=== PATIENT | male | born 1955 | race Caucasian/White ===

== ENCOUNTER 2018-10-02 11:08 | Inpatient (IN) | payer OTHER ==
[~2018-10-02] VITALS: Ht 182.9 cm; Wt 89.4 kg
--- NOTE | 2018-10-02 11:45 | NUR ---
IV LINE STARTED BLOOD DRAWN AND SENT TO LAB.
--- NOTE | 2018-10-02 11:55 | NUR ---
pt came in for weakness, weight loss and SOB, alert, follows commands, SR, SOB, RR 24, sat well, BL leg ulcers and pitting edema, v/s stable, no pain, family at the bedside, seen by .
[2018-10-02 12:30] LABS: CARBON DIOXIDE 21 mmol/L (21-32); CHLORIDE 99 mmol/L (98-107); POTASSIUM 6.3 mmol/L (3.5-5.1); SODIUM SERUM 132 mmol/L (136-145)
[2018-10-02 12:31] LABS: BILIRUBIN,DIRECT 1.7 mg/dL (0.0-0.2); CALCIUM, SERUM 9.3 mg/dL (8.5-10.1); CREATININE 2.8 mg/dL (0.6-1.3)
[2018-10-02 12:32] LABS: ALANINE AMINOTRANSFERASE 36 U/L (12-78); ALKALINE PHOSPHATASE 151 U/L (46-116); ASPARTATE AMINOTRANSFERASE 17 U/L (15-37); B-TYPE NATRIURETIC PEPTIDE 26264 PG/ML (0-125)
[2018-10-02 12:35] LABS: GLUCOSE 495 mg/dL (74-106)
[2018-10-02 12:36] LABS: UREA NITROGEN, BLOOD 107 mg/dL (7-18)
[2018-10-02 12:37] LABS: BASOPHILS % (AUTO) 0.2 % (0.0-2.0); HEMATOCRIT 55 % (39-51); LYMPHOCYTES # (AUTO) 0.7 /CMM (0.8-4.8); LYMPHOCYTES % (AUTO) 4.7 % (20.0-44.0); MEAN CORPUSCULAR HGB CONC 32 g/dl (31.0-36.0); MEAN CORPUSCULAR VOLUME 91 fL (80-96); MONOCYTES # (AUTO) 0.6 /CMM (0.1-1.30); MONOCYTES % (AUTO) 4.2 % (2.0-12.0); NEUTROPHILS # (AUTO) 13.2 /CMM (1.8-8.9); NEUTROPHILS % (AUTO) 90.9 % (43.0-81.0); PLATELET COUNT (AUTO) 120 /CMM (150-450); RED BLOOD CELL COUNT(AUTO) 6.03 MIL/uL (4.5-6.0); WHITE BLOOD COUNT (AUTO) 14.6 K/uL (4.3-11.0)
[2018-10-02 12:39] LABS: HEMOGLOBIN 17.6 g/dL (13.5-17.5)
[2018-10-02] MEDS ORDERED: INSULIN REGULAR, HUMAN 100 UNIT/ML 10 ML VIAL IV ONE (13:00)
[2018-10-02] MEDS ORDERED: INSULIN REGULAR, HUMAN 100 UNIT/ML 10 ML VIAL ONE (13:02)
--- NOTE | 2018-10-02 13:15 | NUR ---
CALLED NURSING SUP REQUESTED JAMIR BED
--- NOTE | 2018-10-02 13:19 | NUR ---
120-1 JAMIR DX ACUTE RENAL FAILURE, NSTEMI, HYPERGLYCEMIA, CHF, SEVERE DEHYDRATION ACCEPTING DAVID COPELAND
[2018-10-02] MEDS ORDERED: MEROPENEM 1 G in IV NS 0.9% 100 ML IV ONE (13:30)
--- NOTE | 2018-10-02 13:48 | NUR ---
CANDY CATCHER DAVID COPELAND AT BEDSIDE
[2018-10-02] MEDS ORDERED: ASPIRIN 325 MG TABLET PO ONE (14:30)
[2018-10-02] MEDS ORDERED: MAG HYDROX/AL HYDROX/SIMETH 30 ML UDC PO PRN (14:30)
[2018-10-02] MEDS ORDERED: ONDANSETRON HCL/PF 4 MG/2 ML VIAL IVP PRN (14:30)
[2018-10-02] MEDS ORDERED: ACETAMINOPHEN 325 MG TABLET PO PRN (14:30)
[2018-10-02] MEDS ORDERED: DEXTROSE 50%-WATER 50 ML DISP.SYRIN IV PRN (14:30)
[2018-10-02] MEDS ORDERED: MORPHINE SULFATE INJ 2 MG/ML DISP.SYRIN IV PRN (14:30)
[2018-10-02] MEDS ORDERED: MAGNESIUM HYDROXIDE 30 ML UDC PO PRN (14:30)
[2018-10-02] MEDS ORDERED: HYDROCODONE/APAP 5/325MG 1 EACH TABLET PO PRN (14:30)
--- NOTE | 2018-10-02 14:43 | NUR ---
ADMIT TO ROOM 114-1 JAMIR
[2018-10-02] MEDS ORDERED: ASPIRIN 325 MG TABLET ONE (14:53)
[2018-10-02] MEDS: PANTOPRAZOLE 40 MG TABLET.DR PO SCH (14:53)
[2018-10-02] MEDS ORDERED: PANTOPRAZOLE 40 MG TABLET.DR PO ONE (14:53)
[2018-10-02] MEDS ORDERED: SODIUM POLYSTYRENE SULFONATE 15 G/60 ML BOTTLE PO ONE (15:00)
[2018-10-02] MEDS ORDERED: ALBUTEROL FS 2.5 MG/3 ML VIAL.NEB NEB ONE (15:00)
[2018-10-02] MEDS ORDERED: FEE PK DOSING 1 MIN EA MC ONE (15:05)
[2018-10-02 16:00] VITALS: BP 136/71
--- NOTE | 2018-10-02 16:00 | NUR ---
TD RN NOTES ADMITTED FROM ER, THIS PT WITH DX SEVERE SEPSIS, NSTEMI, CHF, ATTENDING MD DAVID COPELAND. PT AAO X 4, WEAK LOOKING, ON 2L O2 NASAL CANULA, NOT ZULMA [place] DISTRESS, RESPIRATION UNLABORED, SR HR 99 ON MONITOR. DENIES CHEST PAIN/DISCOMFORT, LEFT AC G 18 IV FLUSHES WELL, SITE CLEAR. SEE NURSING FLOWSHEET FOR SEVERAL SKIN ISSUES. PHOTOS TAKEN AND INCORPORATED INSIDE CHART. BLE WITH +3 TO +4 PITTING EDEMA. ON CARDIAC DIET. UNIT ORIENTATION AND USE OF CALL LIGHT DONE. VERBALIZED UNDERSTANDING. ALL ADMITTING ORDERS CARRIED OUT. SAFETY MEASURES IN PLACE. WILL CONT TO MONITOR.
[2018-10-02] MEDS ORDERED: IV NS 0.9% 1,000 ML IV PRN (17:01)
[2018-10-02] MEDS: VANCOMYCIN 1 GM in IV D5W 250 ML IV SCH (18:09)
[2018-10-02] MEDS: BLOOD SUGAR DIAGNOSTIC 1 EACH STRIP VI SCH ×2 (18:27→21:44)
[2018-10-02] MEDS: INSULIN REGULAR, HUMAN 100 UNIT/ML 3 ML VIAL SQ PRN (18:48)
--- NOTE | 2018-10-02 19:30 | NUR ---
TD RN NOTES ALL NEEDS MET AT THIS TIME. PT'S STAFF AT BEDSIDE. RESTING COMFORTABLY. NO OTHER SIGNIFCANT CHANGE IN CONDITION. NOT IN DISTRESS. PER DAVID COPELAND TO FOLLOW DR. DOWNING WITH IVF NS AT 125 ML/HR. SAFETY MEASURES IN PLACE. WILL ENDORSE TO NEXT SHIFT FOR USHA.
[2018-10-02 20:00] VITALS: BP 90/72
[2018-10-02] MEDS ORDERED: MEROPENEM 500 MG in IV NS 0.9% 50 ML IV SCH (21:00)
[2018-10-02] MEDS: MEROPENEM 1 G in IV NS 0.9% 100 ML IV SCH (21:37)
[2018-10-02] MEDS: *INSULIN REGULAR(HUMULIN R)HUM 100 UNIT/ML VIAL SQ PRN (21:53)
[2018-10-02] MEDS ORDERED: TEMAZEPAM 7.5 MG CAPSULE PO PRN (22:20)
[2018-10-03] VITALS: BP 130/75
[2018-10-03 04:00] VITALS: BP 130/75
[2018-10-03 07:26] LABS: BASOPHILS % (AUTO) 0.1 % (0.0-2.0); EOSINOPHILS % (AUTO) 0.4 % (0.0-6.0); HEMATOCRIT 50 % (39-51); HEMOGLOBIN 16.1 g/dL (13.5-17.5); LYMPHOCYTES # (AUTO) 0.8 /CMM (0.8-4.8); LYMPHOCYTES % (AUTO) 6.6 % (20.0-44.0); MEAN CORPUSCULAR HGB CONC 32 g/dl (31.0-36.0); MEAN CORPUSCULAR VOLUME 90 fL (80-96); MONOCYTES # (AUTO) 0.6 /CMM (0.1-1.30); NEUTROPHILS # (AUTO) 10.2 /CMM (1.8-8.9); NEUTROPHILS % (AUTO) 87.9 % (43.0-81.0); PLATELET COUNT (AUTO) 92 /CMM (150-450); RED BLOOD CELL COUNT(AUTO) 5.57 MIL/uL (4.5-6.0); WHITE BLOOD COUNT (AUTO) 11.6 K/uL (4.3-11.0)
--- NOTE | 2018-10-03 07:30 | NUR ---
RN NOTES RECEIVED PATIENT IN BED, AWAKE, A/O X4, NOT ON ANY FORM OF DISTRESS. ON 02 SUPPORT VIA NASAL CANNULA AT 2 LPM, SATING FINE, NO SOB NOTED, SR ON THE MONITOR HR ON THE 90'S, NO COMPLAINTS OF PAIN AT THIS TIME. IV ACCESS ON THE L AC IN PLACE AND INTACT, PATEBT ON FLUSHING, DRESSING CDI, WITH ONGOING IVF OF NS AT 125 ML/HR, PATIENT ENCOURAGE TO USE CALL LIGHT FOR HELP AND AIRSTANCE, CALL LIGHT PLACE WITHIN REACH, BED LOW AND LOCKED POSITION. WILL CONTINUE TO MONITOR PATIENT CLOSELY
[2018-10-03 07:39] LABS: ALBUMIN 2.3 g/dL (3.4-5.0); BILIRUBIN,TOTAL 1.8 mg/dL (0.2-1.0); CALCIUM, SERUM 8.3 mg/dL (8.5-10.1); CREATININE 2.1 mg/dL (0.6-1.3); MAGNESIUM 3.2 mg/dL (1.8-2.4); PHOSPHORUS 4.4 mg/dL (2.5-4.9); POTASSIUM 4.6 mmol/L (3.5-5.1); TOTAL PROTEIN, SERUM 5.7 g/dL (6.4-8.2)
[2018-10-03 07:51] LABS: THYROID STIMULATING HORMONE 2.452 uIU/mL (0.358-3.74)
[2018-10-03 08:00] VITALS: BP 98/73
[2018-10-03 08:50] LABS: LYMPHOCYTES % (MANUAL) 4 % (16-48); MONOCYTES % (MANUAL) 5 % (0-11.0); NEUTROPHILS % (MANUAL) 91 (42-76)
[2018-10-03] MEDS ORDERED: ASPIRIN 81 MG TAB.CHEW PO SCH (09:00)
[2018-10-03] MEDS: BLOOD SUGAR DIAGNOSTIC 1 EACH STRIP VI SCH ×2 (09:27→12:24)
[2018-10-03] MEDS: MEROPENEM 1 G in IV NS 0.9% 100 ML IV SCH ×2 (09:28→22:06)
[2018-10-03] MEDS: PANTOPRAZOLE 40 MG TABLET.DR PO SCH (09:28)
[2018-10-03 12:00] VITALS: BP 92/56
[2018-10-03] MEDS: INSULIN REGULAR, HUMAN 100 UNIT/ML 3 ML VIAL SQ PRN ×2 (12:27→17:29)
--- NOTE | 2018-10-03 14:00 | NUR ---
RN NOTES WOUND DEBRIDEMENT OF BILATERAL LEG DONE. DR. GRAY THAT PLATELET AT 92 TODAY FROM 102 YESTERDAY.
[2018-10-03] MEDS ORDERED: DEXTROSE 50%-WATER 50 ML DISP.SYRIN IV PRN (15:00)
--- NOTE | 2018-10-03 15:00 | NUR ---
RN NOTES INFORMED DAVID COPELAND NP ABOUT PLATELET LEVEL TODAY. NO NEW ORDER AT THIS TIME.
[2018-10-03] MEDS: VANCOMYCIN 1 GM in IV D5W 250 ML IV SCH (15:47)
[2018-10-03 16:00] VITALS: BP 92/64
[2018-10-03] MEDS: LACTOBACILLUS RHAMNOSUS GG 1 EACH CAP.SPRINK PO SCH (17:27)
[2018-10-03] MEDS: BLOOD SUGAR DIAGNOSTIC 1 EACH STRIP IN SCH ×2 (17:29→22:06)
--- NOTE | 2018-10-03 18:00 | NUR ---
RN NOTES INFORMED DAVID COPELAND NP ON THE PROCALCITONIN LEVEL AT 0.41. AWAITING RESPONSE
--- NOTE | 2018-10-03 18:25 | NUR ---
Met with patient and perry Kathy at bedside. Patient is alert and pleasant. States he lives on the second floor apartment with his roommate Fran [phone]. States he is employed and currently on medical leave. Prior to hospitalization, he was ambulatory and independent with adl's. Has no DME or homehealth reported. His roommate provides assistance as needed and his family (brother and niece) who lives in [place] are very involved and supportive. He needs to find PMD for outpt follow needs after discharge. Addendum: 10/03/18 at 5308 by FELI SCOTT RN Amended: Links added.
--- NOTE | 2018-10-03 19:37 | NUR ---
RN NOTES ENDORSED PATIENT FOR CONTINUITY OF CARE. NOT ON ANY FORM OF DISTRESS. NO ACUTE CHANGE WITHIN THE SHIFT. ALL NURSING NEEDS ATTENDED AND MET. SAFETY MEASURES KEPT IN PLACE AT ALL TIMES. CALL LIGHT WITHIN REACH
[2018-10-03 20:00] VITALS: BP 90/60
[2018-10-03] MEDS: INSULIN GLARGINE, 100 UNIT/ML CARTRIDGE SQ SCH (22:09)
[2018-10-03] MEDS: *INSULIN REGULAR(HUMULIN R)HUM 100 UNIT/ML VIAL SQ PRN (22:11)
[2018-10-04] VITALS: BP 93/63
[2018-10-04 04:00] VITALS: BP 94/69
--- NOTE | 2018-10-04 07:00 | NUR ---
RN NOTES RECEIVED PATIENT ON BED, A/Ox4, ON 2L O2 N/C , RESPIRATION EVEN AND UNLABORED, NO SOB NOTED, ON TELE SR HR IN 80'S, DRESSING TO KALYAN LOWER EXTRIMITES INTACT, R ARM IV SITE G 20 CLEAN,DRY AND INTACT, SR UP x3, CALL LIGHT WITHIN EASY REACH, BED LOCKED AND IN LOWEST POSITION , CONTINUE TO MONITOR .
[2018-10-04 08:00] VITALS: BP 100/67
[2018-10-04] MEDS: LACTOBACILLUS RHAMNOSUS GG 1 EACH CAP.SPRINK PO SCH ×2 (08:13→17:10)
[2018-10-04] MEDS: PANTOPRAZOLE 40 MG TABLET.DR PO SCH (08:13)
[2018-10-04 08:17] LABS: BASOPHILS % (AUTO) 0.1 % (0.0-2.0); EOSINOPHILS % (AUTO) 0.4 % (0.0-6.0); HEMATOCRIT 48 % (39-51); HEMOGLOBIN 16.1 g/dL (13.5-17.5); LYMPHOCYTES # (AUTO) 0.9 /CMM (0.8-4.8); MEAN CORPUSCULAR HGB CONC 33 g/dl (31.0-36.0); MEAN CORPUSCULAR VOLUME 88 fL (80-96); MONOCYTES # (AUTO) 0.6 /CMM (0.1-1.30); MONOCYTES % (AUTO) 5.8 % (2.0-12.0); NEUTROPHILS # (AUTO) 8.9 /CMM (1.8-8.9); NEUTROPHILS % (AUTO) 84.7 % (43.0-81.0); PLATELET COUNT (AUTO) 80 /CMM (150-450); RED BLOOD CELL COUNT(AUTO) 5.47 MIL/uL (4.5-6.0); WHITE BLOOD COUNT (AUTO) 10.4 K/uL (4.3-11.0)
[2018-10-04] MEDS: BLOOD SUGAR DIAGNOSTIC 1 EACH STRIP IN SCH ×4 (08:17→21:37)
[2018-10-04] MEDS: MEROPENEM 1 G in IV NS 0.9% 100 ML IV SCH ×2 (08:17→21:37)
[2018-10-04] MEDS: INSULIN REGULAR, HUMAN 100 UNIT/ML 3 ML VIAL SQ PRN ×2 (08:17→11:36)
[2018-10-04 08:21] LABS: CALCIUM, SERUM 8.1 mg/dL (8.5-10.1); CREATININE 1.5 mg/dL (0.6-1.3); POTASSIUM 3.4 mmol/L (3.5-5.1)
[2018-10-04 08:43] LABS: BAND % (MANUAL) 4 % (0.0-5.0); EOSINOPHILS % (MANUAL) 2 % (0-4); LYMPHOCYTES % (MANUAL) 9 % (16-48); MONOCYTES % (MANUAL) 5 % (0-11.0); NEUTROPHILS % (MANUAL) 80 (42-76)
[2018-10-04] MEDS: POTASSIUM CL. PREMIX PERIPHER. 50 ML IV SCH ×2 (11:04→12:21)
--- NOTE | 2018-10-04 12:00 | NUR ---
RN NOTES PT STABLE , NO DISTRESS NOTED, CONTINUE TO MONITOR .
[2018-10-04] MEDS: VANCOMYCIN 1 GM in IV D5W 250 ML IV SCH (12:52)
[2018-10-04] MEDS: INSULIN ASPART/LISPRO 100 UNIT/ML CARTRIDGE SQ SCH ×2 (13:17→18:42)
[2018-10-04 14:00] VITALS: BP 101/65
[2018-10-04 16:00] VITALS: BP 101/65
--- NOTE | 2018-10-04 18:49 | NUR ---
RN NOTES SUPPORTIVE FAMILY AT THE BEDSIDE, NO SIGNIFICANT CHANGES NOTED ON THIS SHIFT , WILL ENDOSE TO FIRER ELECTRIC LOCOMOTIVE NURSE FOR CONTINUITY OF CARE .
[2018-10-04 20:00] VITALS: BP 100/59
--- NOTE | 2018-10-04 20:00 | NUR ---
RN INITIAL NOTES RECEIVED PATIENT IN BED, AWAKE, A/O X4, NOT ON ANY FORM OF DISTRESS.VISITOR AT BEDSIDE. ON 02 SUPPORT VIA NASAL CANNULA AT 2 LPM, SATING FINE, NO SOB NOTED, NO COMPLAINTS OF PAIN AT THIS TIME. IV ACCESS ON THE R ARM IN PLACE AND INTACT, PATENT,FLUSHING, DRESSING CDI S/L, PATIENT ENCOURAGE TO USE CALL LIGHT FOR HELP AND AIRSTANCE, CALL LIGHT PLACE WITHIN REACH, BED LOW AND LOCKED POSITION. WILL CONTINUE TO MONITOR PATIENT CLOSELY.
[2018-10-04] MEDS: INSULIN GLARGINE, 100 UNIT/ML CARTRIDGE SQ SCH (21:58)
[2018-10-05] VITALS (7 sets, daily range): BP systolic 76–95; BP diastolic 58–72
[2018-10-05] MEDS: VANCOMYCIN 1 GM in IV D5W 250 ML IV SCH ×2 (00:20→13:13)
[2018-10-05 06:19] LABS: ALBUMIN 2.1 g/dL (3.4-5.0); BILIRUBIN,TOTAL 1.8 mg/dL (0.2-1.0); CALCIUM, SERUM 8.2 mg/dL (8.5-10.1); CREATININE 1.4 mg/dL (0.6-1.3); MAGNESIUM 2.8 mg/dL (1.8-2.4); PHOSPHORUS 3.5 mg/dL (2.5-4.9); POTASSIUM 4.1 mmol/L (3.5-5.1); TOTAL PROTEIN, SERUM 5.5 g/dL (6.4-8.2)
[2018-10-05 06:23] LABS: BASOPHILS % (AUTO) 0.1 % (0.0-2.0); EOSINOPHILS % (AUTO) 0.6 % (0.0-6.0); HEMATOCRIT 48 % (39-51); HEMOGLOBIN 15.6 g/dL (13.5-17.5); LYMPHOCYTES # (AUTO) 1.2 /CMM (0.8-4.8); LYMPHOCYTES % (AUTO) 13.4 % (20.0-44.0); MEAN CORPUSCULAR HGB CONC 33 g/dl (31.0-36.0); MEAN CORPUSCULAR VOLUME 89 fL (80-96); MONOCYTES # (AUTO) 0.7 /CMM (0.1-1.30); MONOCYTES % (AUTO) 7.3 % (2.0-12.0); NEUTROPHILS % (AUTO) 78.6 % (43.0-81.0); PLATELET COUNT (AUTO) 80 /CMM (150-450); RED BLOOD CELL COUNT(AUTO) 5.38 MIL/uL (4.5-6.0); WHITE BLOOD COUNT (AUTO) 8.9 K/uL (4.3-11.0)
--- NOTE | 2018-10-05 06:25 | NUR ---
RN CLOSING NOTES NO SIGNIFICANT CHANGES NOTED ON THIS SHIFT , WILL ENDORSE TO AM SHIFT NURSE FOR CONTINUITY OF CARE .
[2018-10-05 07:41] LABS: BAND % (MANUAL) 1 % (0.0-5.0); LYMPHOCYTES % (MANUAL) 12 % (16-48); MONOCYTES % (MANUAL) 1 % (0-11.0); NEUTROPHILS % (MANUAL) 86 (42-76)
--- NOTE | 2018-10-05 08:00 | NUR ---
RN INITIAL NOTES: RECIVED PT IN THE AM ALERT AND ORIENTED x4. PATIENT IS NOW EATING 90 PERCENT OF HIS BREAKFAST. PT'S DRESSINGS ARE IN TACT AND DRY. RIGHT UPPER ARM 20 GAUGE IV THAT IS PATENT. . WILL HAVE CONTINUE TO MONITER PT.
[2018-10-05] MEDS: BLOOD SUGAR DIAGNOSTIC 1 EACH STRIP IN SCH ×4 (08:09→22:05)
[2018-10-05] MEDS: INSULIN ASPART/LISPRO 100 UNIT/ML CARTRIDGE SQ SCH ×2 (09:18→19:05)
[2018-10-05] MEDS: MEROPENEM 1 G in IV NS 0.9% 100 ML IV SCH ×2 (09:22→22:05)
[2018-10-05] MEDS: PANTOPRAZOLE 40 MG TABLET.DR PO SCH (09:23)
[2018-10-05] MEDS: LACTOBACILLUS RHAMNOSUS GG 1 EACH CAP.SPRINK PO SCH ×2 (09:23→19:06)
--- NOTE | 2018-10-05 12:32 | NUR ---
MS1/RN ROUNDS - RAMY COPELAND PT SEEN & EXAMINED BY RAMY COPELAND, NO NEW ORDERS RECEIVED AT THIS TIME. MONITORING CONTINUED.
[2018-10-05] MEDS: INSULIN REGULAR, HUMAN 100 UNIT/ML 3 ML VIAL SQ PRN (13:03)
--- NOTE | 2018-10-05 17:36 | NUR ---
MS1/RN ROUNDS - DR. MARIE PT SEEN & EXAMINED BY DR. MARIE, NO NEW ORDERS RECEIVED AT THIS TIME. MONITORING CONTINUED.
--- NOTE | 2018-10-05 19:45 | NUR ---
MED SHERI ENDING NOTE PATIENT TOLERATED THE DAY WELL, NO ACUTE CHANGES, NO SIGNS AND SYMPTOMS OF DISTRESS. FAMILY AT BEDSIDE. CARE RENDTERED ORDERED. ALL NEEDS MET. PT IS ENDORESED TO PM NURSE TO PM NURSE. ENDORESED TO PM NURSE TO OBTAIN CONSTENT FOR THORANCENTISIS,
--- NOTE | 2018-10-05 20:00 | NUR ---
RN INITIAL NOTES RECEIVED PATIENT IN BED, AWAKE, A/O X4, NOT ON ANY FORM OF DISTRESS. FAMILY AT BEDSIDE. ON 02 SUPPORT VIA NASAL CANNULA AT 2 LPM, SATING FINE, NO SOB NOTED, NO COMPLAINTS OF PAIN AT THIS TIME. IV ACCESS ON THE R ARM IN PLACE AND INTACT, PATENT,FLUSHING, DRESSING CDI S/L, PATIENT ENCOURAGE TO USE CALL LIGHT FOR HELP AND AIRSTANCE, CALL LIGHT PLACE WITHIN REACH, BED LOW AND LOCKED POSITION. WILL CONTINUE TO MONITOR PATIENT CLOSELY.
[2018-10-05] MEDS ORDERED: IV NS 0.9% 250 ML BAG IV ONE (21:00)
[2018-10-05] MEDS: INSULIN GLARGINE, 100 UNIT/ML CARTRIDGE SQ SCH (22:18)
[2018-10-06] MEDS: VANCOMYCIN 1 GM in IV D5W 250 ML IV SCH (01:00)
[2018-10-06 04:00] VITALS: BP 111/54
[2018-10-06 04:19] VITALS: BP 111/54
--- NOTE | 2018-10-06 06:49 | NUR ---
RN CLOSING NOTES NO SIGNIFICANT CHANGES NOTED ON THIS SHIFT , WILL ENDORSE TO AM SHIFT NURSE FOR CONTINUITY OF CARE .
[2018-10-06 07:42] LABS: BASOPHILS % (AUTO) 0.1 % (0.0-2.0); EOSINOPHILS % (AUTO) 0.6 % (0.0-6.0); HEMATOCRIT 49 % (39-51); HEMOGLOBIN 16.3 g/dL (13.5-17.5); LYMPHOCYTES # (AUTO) 1.5 /CMM (0.8-4.8); LYMPHOCYTES % (AUTO) 16.6 % (20.0-44.0); MEAN CORPUSCULAR HGB CONC 34 g/dl (31.0-36.0); MEAN CORPUSCULAR VOLUME 89 fL (80-96); MONOCYTES # (AUTO) 0.7 /CMM (0.1-1.30); NEUTROPHILS % (AUTO) 74.7 % (43.0-81.0); PLATELET COUNT (AUTO) 94 /CMM (150-450); RED BLOOD CELL COUNT(AUTO) 5.47 MIL/uL (4.5-6.0); WHITE BLOOD COUNT (AUTO) 9.4 K/uL (4.3-11.0)
[2018-10-06 07:50] LABS: ALBUMIN 2.4 g/dL (3.4-5.0); CALCIUM, SERUM 7.9 mg/dL (8.5-10.1); CREATININE 1.5 mg/dL (0.6-1.3); MAGNESIUM 2.6 mg/dL (1.8-2.4); PHOSPHORUS 3.4 mg/dL (2.5-4.9); POTASSIUM 3.9 mmol/L (3.5-5.1); TOTAL PROTEIN, SERUM 5.9 g/dL (6.4-8.2)
[2018-10-06 07:52] LABS: FREE PSA 0.21 ng/mL (0.00-45); PROSTATE SPECIFIC ANTIGEN SCR 1.77 ng/mL (0.00-4.00)
[2018-10-06 08:00] VITALS: BP_SYST 81; BP_SYST 91; BP_DIAS 55; BP_DIAS 71
--- NOTE | 2018-10-06 08:00 | NUR ---
MS1/RN AM SHIFT INITIAL NOTES RECEIVED PT AWAKE SITTING IN BED, PT A/O X 4, NO ACUTE CHANGE OF CONDITION. DENIES ANY SYMPTOMS. PT ON ROOM AIR SATURATING @ 97%, LUNG SOUNDS DIMINISHED. NOTED WITH LOW BP OF 81/55 ASYMPTOMATIC. WILL RE-CHECK BP. IV SITE WITH GOOD BLOOD RETURN, FLUSHED, PATENT ON TKO. BS CHECKED, 94, NO S/S OF HYPOGLYCEMIA. PT IS SCHEDULED FOR US GUIDED THORACENTESIS. PT IS COMFORTABLE, SCHEDULED AM MEDS TO BE GIVEN. CL WITHIN REACHED AND SAFETY MAINTAINED. ON GOING MONITORING.
[2018-10-06] MEDS: BLOOD SUGAR DIAGNOSTIC 1 EACH STRIP IN SCH ×4 (08:48→22:41)
[2018-10-06] MEDS: PANTOPRAZOLE 40 MG TABLET.DR PO SCH (08:52)
[2018-10-06] MEDS: LACTOBACILLUS RHAMNOSUS GG 1 EACH CAP.SPRINK PO SCH ×2 (08:52→18:47)
[2018-10-06] MEDS: INSULIN ASPART/LISPRO 100 UNIT/ML CARTRIDGE SQ SCH ×2 (08:53→18:43)
[2018-10-06] MEDS: MEROPENEM 1 G in IV NS 0.9% 100 ML IV SCH (08:54)
--- NOTE | 2018-10-06 10:41 | NUR ---
MS1/RN ROUNDS - SWALLOW EVALUATION PT SEEN BY SPEECH THERAPIST FOR SWALLOW EVALUATION. THERAPIST RECOMMENDS DIETARY CONSULT. PRIMARY MD NOTIFIED. MONITORING CONTINUED.
[2018-10-06 10:44] VITALS: BP 90/71
--- NOTE | 2018-10-06 10:45 | NUR ---
MS1/RN ROUNDS - DR. OCHOA UPDATED PT'S CONDITION. PT SEEN & EXAMINED BY DR. OCHOA, WITH VERBAL ORDERS FOR ADDITIONAL TESTS OF PLEURAL FLUID SPECIMEN. NOTED AND CARRIED.
--- NOTE | 2018-10-06 11:06 | NUR ---
MS1/RN LOW BP NOTIFIED ITINERANT TEACHER ASSISTANT DINORAH OF PT'S LOW BP BUT ASYMPTOMATIC, PER ITINERANT TEACHER ASSISTANT LEAVE IT ALONE. CONTINUING MONITORING.
--- NOTE | 2018-10-06 11:17 | NUR ---
MS1/RN ROUNDS - INFECTIOUS D. PT SEEN & EXAMINED BY RAMY HERRERA. NO NEW ORDERS RECEIVED. MONITORING.
--- NOTE | 2018-10-06 11:19 | NUR ---
MS1/RN LOW BP PT NOTED WITH LOW BP PT ASYMPTOMATIC, PRIMARY MADE AWARE, NO NEW ORDERS. MONITORING.
[2018-10-06] MEDS: INSULIN REGULAR, HUMAN 100 UNIT/ML 3 ML VIAL SQ PRN ×2 (13:03→18:38)
--- NOTE | 2018-10-06 14:30 | NUR ---
MS1/RN S/P LEFT LUNG THORACENTESIS S/P LEFT LUNG THORACENTESIS PERFORMED BY DR. RIOS, ASSISTED BY WAREHOUSE LOGISTICS MANAGER. REMOVED A TOTAL OF 960ML OF PLEURAL FLUID, SENT TO LAB FOR ANALYSIS. PT TOLERATED THE PROCEDURE.
[2018-10-06] MEDS: CEFTRIAXONE 1 G in IV D5W 50 ML IV SCH (14:31)
[2018-10-06 16:00] VITALS: BP 84/62
[2018-10-06] MEDS ORDERED: Z GUARD REMEDY 2 OZ OINT TP PRN (17:30)
--- NOTE | 2018-10-06 18:21 | NUR ---
MS1/RN ROUNDS - DR. MARIE PT SEEN & EXAMINED BY DR. MARIE, WITH NEW ORDERS NOTED FOR LAB DRAW IN AM. MONITORING CONTINUED.
--- NOTE | 2018-10-06 19:52 | NUR ---
MS1/RN AM SHIFT END NOTES ALL NEEDS MET. NO ACUTE CHANGE OF CONDITION NOTED DURING THE SHIFT. PT ENDORSED TO PM NURSE TO CONTINUE CARE. CL WITHIN REACHED AND SAFETY MAINTAINED.
[2018-10-06 20:00] VITALS: BP 101/73
--- NOTE | 2018-10-06 20:00 | NUR ---
JAMIR RN NOTES RECEIVED PT IN BED SLEEPING , PT A/O X 4, NO ACUTE CHANGE OF CONDITION. DENIES ANY PAIN AND DISCOMFORT AT THIS TIME. PT ON ROOM AIR SATURATING @ 96%, V/S ARE WNL. IV SITE WITH GOOD BLOOD RETURN, FLUSHED, PATENT. PT IS COMFORTABLE, SCHEDULED PM MEDS TO BE GIVEN. BED IN LOW, LOCKED POSITION, CL WITHIN REACHED AND SAFETY MAINTAINED. ON GOING MONITORING.
[2018-10-06] MEDS: INSULIN GLARGINE, 100 UNIT/ML CARTRIDGE SQ SCH (22:00)
--- NOTE | 2018-10-06 22:00 | NUR ---
RN NOTES PATIENT'S BS 91. INSULIN LANTUS 20 UNITS WILL BE HELD DUE TO DECREASED BLOOD SUGAR.
[2018-10-07 04:00] VITALS: BP 93/66
[2018-10-07 06:57] LABS: BASOPHILS % (AUTO) 0.2 % (0.0-2.0); EOSINOPHILS % (AUTO) 0.1 % (0.0-6.0); HEMATOCRIT 48 % (39-51); HEMOGLOBIN 15.7 g/dL (13.5-17.5); LYMPHOCYTES # (AUTO) 1.3 /CMM (0.8-4.8); LYMPHOCYTES % (AUTO) 9.8 % (20.0-44.0); MEAN CORPUSCULAR HGB CONC 33 g/dl (31.0-36.0); MEAN CORPUSCULAR VOLUME 88 fL (80-96); MONOCYTES # (AUTO) 0.8 /CMM (0.1-1.30); MONOCYTES % (AUTO) 6.4 % (2.0-12.0); NEUTROPHILS # (AUTO) 10.7 /CMM (1.8-8.9); NEUTROPHILS % (AUTO) 83.5 % (43.0-81.0); PLATELET COUNT (AUTO) 114 /CMM (150-450); RED BLOOD CELL COUNT(AUTO) 5.42 MIL/uL (4.5-6.0); WHITE BLOOD COUNT (AUTO) 12.8 K/uL (4.3-11.0)
[2018-10-07 07:42] LABS: CREATININE 1.5 mg/dL (0.6-1.3); POTASSIUM 3.8 mmol/L (3.5-5.1)
[2018-10-07 08:00] VITALS: BP 93/76
--- NOTE | 2018-10-07 08:00 | NUR ---
MS/RN PATIENT RECEIVED IN BED RESTING COMFORTABLY. NO S/S OF ACUTE DISTRESS NOTES. RESP EVEN AND UNLABORED. PATIENT SATURATION NOTED 98% ON R/A. LUNG SOUNDS NOTED CLEAR BILATERALLY. PATIENT VERBALIZE " AM ABLE TO BREATH BETTER AFTER THORACENTESIS". PATIENT DENIES ANY PAIN OR DISCOMFORT AT THIS TIME. PATIENT A/O X4. SKIN WARM TO TOUCH. IV SITE NOTED C NO S/S OF INFECTION. NO S/S OF INFILTRATION NOTED, C GOOD BLOOD RETURN. IV FLUSHED AT THIS TIME. PATIENT AFEBRILE. ABDOMEN SOFT NON-DISTENDED. BOWEL SOUNDS PRESENT X 4 QUADRANT. PATIENT KEPT CLEAN AND DRY. ALL NEEDS ATTENDANT. ALL MORNING MEDS GIVEN ORDER. BS CHECKED ORDER. NO S/S OF HYPER AND HYPOGLYCEMIA NOTED. RESIDENT TOLERATED WELL. WILL CONTINUE TO MONITOR PATIENT. CALL LIGHT WITHIN REACH. SAFETY MAINTAINED.
[2018-10-07] MEDS: BLOOD SUGAR DIAGNOSTIC 1 EACH STRIP IN SCH ×4 (08:29→21:43)
[2018-10-07] MEDS: PANTOPRAZOLE 40 MG TABLET.DR PO SCH (08:35)
[2018-10-07] MEDS: LACTOBACILLUS RHAMNOSUS GG 1 EACH CAP.SPRINK PO SCH ×2 (08:35→17:14)
[2018-10-07] MEDS ORDERED: POTASSIUM CHLORIDE 20 MEQ TAB.PRT.SR PO SCH (09:00)
[2018-10-07] MEDS ORDERED: FUROSEMIDE 20 MG/2 ML VIAL IV ONE (09:00)
[2018-10-07] MEDS: INSULIN ASPART/LISPRO 100 UNIT/ML CARTRIDGE SQ SCH (09:00)
[2018-10-07 09:45] VITALS: BP 90/66
--- NOTE | 2018-10-07 09:45 | NUR ---
MS1/RN Patient seen and examined by Dr Ruslan encarnacion new order to give lasix and potassium as ordered. Went ahead and checked patient Blood pressure. Patient noted with low Bp 90/66, checked [address] Ruslan encarnacion new order to D/C lasix and patassium for now. Order noted and carried out.
--- NOTE | 2018-10-07 10:02 | NUR ---
MS/RN NOTES INSULIN ASPART/LISPRO 10 UNITS/0.1ML SCHEDUAL AT 0900 WAS NOT GIVEN DUE TO LOW BLOOD SUGAR LEVELS. BLOOD SUGAR LEVELS NOTED 67. CONTINUE TO MONITOR
--- NOTE | 2018-10-07 12:09 | NUR ---
MS/RN PATIENT SEEN AND EXAMINED BY DINORAH RITCHIE WITH NEW LAB ORDER. NOTED. CONTINUE TO MONITOR PATIENT
[2018-10-07] MEDS: INSULIN REGULAR, HUMAN 100 UNIT/ML 3 ML VIAL SQ PRN ×3 (12:16→21:46)
[2018-10-07] MEDS: CEFTRIAXONE 1 G in IV D5W 50 ML IV SCH (12:25)
--- NOTE | 2018-10-07 13:35 | NUR ---
MS1/RN ROUNDS - RAMY PATTERSON UPDATED PT'S CONDITION. PT SEEN & EXAMINED BY RAMY PATTERSON. NO NEW ORDERS RECEIVED AT THIS TIME. MONITORING CONTINUED.
[2018-10-07] MEDS: VANCOMYCIN 1 GM in IV D5W 250 ML IV SCH (13:55)
--- NOTE | 2018-10-07 14:20 | NUR ---
MS/RN CONSENT OBTAINED FOR CT GUIDED NEEDLE BIOPSY FOR RLL. NPO ORDER. CONTINUE TO MONITOR PATIENT.
[2018-10-07] MEDS: GLUCERNA SHAKE 237 ML CAN PO SCH ×2 (14:30→17:51)
[2018-10-07 15:50] LABS: APPEARANCE,URINE CLEAR (CLEAR); BILIRUBIN,URINE NEGATIVE (NEGATIVE); BLOOD, URINE NEGATIVE Ery/uL (NEGATIVE); COLOR,URINE YELLOW (YELLOW); KETONES,URINE NEGATIVE (NEGATIVE); LEUKOCYTE ESTERASE ,URINE NEGATIVE (NEGATIVE); NITRITE, URINE NEGATIVE (NEGATIVE); PROTEIN,URINE TRACE mg/dl (NEGATIVE); UGLUCOSE 3+ mg/dL (NEGATIVE); UROBILINOGEN,URINE 0.2 EU/dL (0.2)
[2018-10-07 16:00] VITALS: BP_SYST 125; BP_SYST 87; BP_DIAS 61; BP_DIAS 63
--- NOTE | 2018-10-07 16:45 | NUR ---
RN NOTE: DELANEY SQUIRES WAS INFORMED THAT THE PATIENT'S CT GUIDED BIOPSY WAS CANCELLED PER DR. OCHOA. DELANEY SQUIRES GAVE AN ORDER FOR DIET, NOTED AND CARRIED OUT. PATIENT MADE AWARE.
--- NOTE | 2018-10-07 16:48 | NUR ---
RN NOTE: RECEIVED AN ORDER FROM DR. OCHOA TO CANCEL THE ORDER FOR CT NEEDLE BIOPSY. ORDER, NOTED AND CARRIED OUT. DELANEY SQUIRES WAS MADE AWARE.
--- NOTE | 2018-10-07 19:00 | NUR ---
MS/RN PATIENT IN BED RESTING COMFORTABLY. NO S/S OF ACUTE DISTRESS NOTED. RESPIRATION EVEN AND UNLABORED. PATIENT O2 SAT NOTED 98% ON R/A. PATIENT ALERT AND ORIENTED X4. SKIN WARM TO TOUCH. REMAINED AFEBRILE THROUGH THE SHIFT. IV SITE INTACT PATENT. NO S/S AND SYMPTOM OF INFECTION NOTED AT THE SITE, NO S/S OF INFILTRATION NOTED. DENIES ANY PAIN OR DISCOMFORT AT THIS TIME. ABDOMEN SOFT NON-DISTENDED, BOWEL SOUNDS PRESENT X4 QUADRANT. NO BLADDER DISTENTION NOTED. ALL NEEDS ATTENDANT. ALL DUE MEDS GIVEN ORDER. RESIDENT TOLERATED WELL. ALL SAFETY MEASURES IMPLEMENTED ORDER. ENDORSED TO PM SHIFT TO CONTINUE TO MONITOR PATIENT PER PLAN OF CARE.
--- NOTE | 2018-10-07 19:20 | NUR ---
RN M/S NOTE PATIENT IS AOX3, SPEECH CLEAR, ABLE TO MAKE NEEDS KNOWN, ON ROOM AIR, AMBULATORY, NO S/SX OF CARDIAC OR RESPIRATORY DISTRESS, VIKI #20G PATENT FLUSHING WELL, SITE IS CLEAN AND DRY, SKIN KEPT CLEAN AND DRY, WILL CONTINUE TO MONITOR FOR ANY CHANGES IN CONDITION, SAFETY MAINTAINED AT ALL TIMES BED IN LOW LOCKED POSITION, CALL LIGHT WITHIN REACH.
[2018-10-07 20:00] VITALS: BP 97/63
[2018-10-07 20:26] LABS: BACTERIA,URINE Rare /HPF (None Seen); RBC,URINE 0-2 /HPF (0-2); SQUAMOUS EPITHELIAL CELL,UR Rare /HPF (None Seen); WBC,URINE 0-2 /HPF (0-3)
[2018-10-07] MEDS: INSULIN GLARGINE, 100 UNIT/ML CARTRIDGE SQ SCH (21:47)
[2018-10-08 04:00] VITALS: BP 92/70
[2018-10-08 06:28] LABS: BASOPHILS % (AUTO) 0.3 % (0.0-2.0); EOSINOPHILS % (AUTO) 0.4 % (0.0-6.0); HEMATOCRIT 50 % (39-51); HEMOGLOBIN 16.4 g/dL (13.5-17.5); LYMPHOCYTES # (AUTO) 1.5 /CMM (0.8-4.8); LYMPHOCYTES % (AUTO) 13.3 % (20.0-44.0); MEAN CORPUSCULAR HGB CONC 33 g/dl (31.0-36.0); MEAN CORPUSCULAR VOLUME 89 fL (80-96); MONOCYTES # (AUTO) 0.8 /CMM (0.1-1.30); MONOCYTES % (AUTO) 7.5 % (2.0-12.0); NEUTROPHILS # (AUTO) 8.7 /CMM (1.8-8.9); NEUTROPHILS % (AUTO) 78.5 % (43.0-81.0); PLATELET COUNT (AUTO) 122 /CMM (150-450); RED BLOOD CELL COUNT(AUTO) 5.59 MIL/uL (4.5-6.0); WHITE BLOOD COUNT (AUTO) 11.1 K/uL (4.3-11.0)
[2018-10-08 06:39] LABS: CALCIUM, SERUM 8.2 mg/dL (8.5-10.1); CREATININE 1.6 mg/dL (0.6-1.3); MAGNESIUM 2.5 mg/dL (1.8-2.4); PHOSPHORUS 3.2 mg/dL (2.5-4.9); POTASSIUM 3.6 mmol/L (3.5-5.1)
--- NOTE | 2018-10-08 06:44 | NUR ---
RN M/S NOTE CALL FROM LAB PT GLUCOSE 50, PATIENT GIVEN SNACKS WILL RECHECK GLUCOSE, DENIES S/SX OF HYPOGLYCEMIA
--- NOTE | 2018-10-08 07:00 | NUR ---
RN AM SHIFT NOTE PATIENT ALERT AND ORIENTED X3. BED IN LOW POSITION, USES URINAL AT BEDSIDE SAFETY MEASURES IN PLACE. ACCUCHECK DONE THIS AM , BLOOD SUGAR WAS LOW, GAVE JUICE RE CHECK SUGAR AT NORMAL LEVEL 98. NO COVERAGE NEEDED, CONTINUE TO MONITOR PATIENT
[2018-10-08 08:00] VITALS: BP 98/73
[2018-10-08] MEDS: GLUCERNA SHAKE 237 ML CAN PO SCH ×2 (08:13→17:19)
[2018-10-08] MEDS: LACTOBACILLUS RHAMNOSUS GG 1 EACH CAP.SPRINK PO SCH ×2 (08:13→18:05)
[2018-10-08] MEDS: PANTOPRAZOLE 40 MG TABLET.DR PO SCH (08:15)
[2018-10-08] MEDS: BLOOD SUGAR DIAGNOSTIC 1 EACH STRIP IN SCH ×4 (08:20→22:27)
[2018-10-08] MEDS: INSULIN ASPART/LISPRO 100 UNIT/ML CARTRIDGE SQ SCH ×2 (08:32→18:18)
[2018-10-08] MEDS: CEFTRIAXONE 1 G in IV D5W 50 ML IV SCH (11:23)
[2018-10-08 12:00] VITALS: BP 98/73
--- NOTE | 2018-10-08 12:13 | NUR ---
RN NOTE FAMILY AT BEDSIDE, PATIENT AND FAMILY REQUEST INFORMATION ON DIABETES AND MEAL PREPARATION. RN INFORMED THEM ON SOME DIETARY ISSUES AND REQUEST DIETARY CONSULT AT BEDSIDE, WHICH WAS DONE BY SAFETY GROOVING MACHINE OPERATOR TODAY. PATIENT TEACHING AND INFORMATION GIVEN. CONTINUE TO MONITOR.
--- NOTE | 2018-10-08 19:10 | NUR ---
MS RN NOTE PATIENT RECEIVED IN BED A/O X 4 SEMI FOWLERS WATCHING UGANDAN DAD. NO S/S OF DISTRESS. PATIENT DENIES PAIN/SOB/CHEST PAIN AT THIS TIME. IV PATENT INTACT NO S/S OF INFILTRATION AND INFECTION SAFETY PRECAUTIONS IN PLACE, RN WILL CONTINUE TO MONITOR.
[2018-10-08 20:00] VITALS: BP 94/66
[2018-10-08] MEDS: INSULIN GLARGINE, 100 UNIT/ML CARTRIDGE SQ SCH (22:28)
[2018-10-08] MEDS: *INSULIN REGULAR(HUMULIN R)HUM 100 UNIT/ML VIAL SQ PRN (22:32)
[2018-10-09] MEDS: VANCOMYCIN 1 GM in IV D5W 250 ML IV SCH (00:55)
[2018-10-09 04:00] VITALS: BP 94/61
--- NOTE | 2018-10-09 06:42 | NUR ---
MS RN NOTE NO ACUTE CHANGES THROUGH THE SHIFT, NO S/S OF DISTRESS, ALL CARE RENDERED, ALL NEEDS MET. SAFETY PRECAUTIONS IN PLACE, CALL LIGHT IN HAND. WILL ENDORSE TO AM POC FOR USHA.
[2018-10-09 07:12] LABS: BASOPHILS % (AUTO) 0.3 % (0.0-2.0); EOSINOPHILS % (AUTO) 0.7 % (0.0-6.0); HEMATOCRIT 50 % (39-51); HEMOGLOBIN 16.4 g/dL (13.5-17.5); LYMPHOCYTES # (AUTO) 1.7 /CMM (0.8-4.8); LYMPHOCYTES % (AUTO) 16.1 % (20.0-44.0); MEAN CORPUSCULAR HGB CONC 33 g/dl (31.0-36.0); MEAN CORPUSCULAR VOLUME 90 fL (80-96); MONOCYTES # (AUTO) 0.8 /CMM (0.1-1.30); MONOCYTES % (AUTO) 7.3 % (2.0-12.0); NEUTROPHILS # (AUTO) 7.8 /CMM (1.8-8.9); NEUTROPHILS % (AUTO) 75.6 % (43.0-81.0); PLATELET COUNT (AUTO) 128 /CMM (150-450); RED BLOOD CELL COUNT(AUTO) 5.53 MIL/uL (4.5-6.0); WHITE BLOOD COUNT (AUTO) 10.3 K/uL (4.3-11.0)
--- NOTE | 2018-10-09 07:15 | NUR ---
RN MS OPENING NOTES RECEIVED REPORT FROM C JAVA DEVELOPER RN. PT IS A&O X4. PT DENIES ANY PAIN OR SOB AT PRESENT MOMENT. PT IS RESTING IN BED IN SEMI LAZCANO POSITION. PT AMBULATES TO RESTROOM. BED IS LOCKED AND IN LOWEST POSITION WITH CALL LIGHT IN REACH. WILL CONTINUE TO MONITOR.
[2018-10-09 07:16] LABS: CALCIUM, SERUM 8.1 mg/dL (8.5-10.1); CREATININE 1.4 mg/dL (0.6-1.3); MAGNESIUM 2.7 mg/dL (1.8-2.4); POTASSIUM 4.3 mmol/L (3.5-5.1)
[2018-10-09 08:00] VITALS: BP 95/72
[2018-10-09 08:07] LABS: *SPE A/G RATIO 0.8 (0.7-1.7); *SPE ALBUMIN 2.5 g/dL (2.9-4.4); *SPE ALPHA-1-GLOBULIN 0.3 g/dL (0.0-0.4); *SPE ALPHA-2-GLOBULIN 0.6 g/dL (0.4-1.0); *SPE BETA GLOBULIN 0.9 g/dL (0.7-1.3); *SPE M-SPIKE Not Observed g/dL (Not Observed); *SPEGAMMA GLOBULIN 1.2 g/dL (0.4-1.8); IMMUNOGLOBULIN A, SERUM 462 mg/dL (61-437); IMMUNOGLOBULIN G, SERUM 1157 mg/dL (700-1600); IMMUNOGLOBULIN M, SERUM 116 mg/dL (20-172)
[2018-10-09] MEDS: PANTOPRAZOLE 40 MG TABLET.DR PO SCH (08:46)
[2018-10-09] MEDS: LACTOBACILLUS RHAMNOSUS GG 1 EACH CAP.SPRINK PO SCH ×2 (08:46→17:39)
[2018-10-09] MEDS: INSULIN ASPART/LISPRO 100 UNIT/ML CARTRIDGE SQ SCH ×2 (08:51→18:22)
[2018-10-09] MEDS: GLUCERNA SHAKE 237 ML CAN PO SCH ×2 (09:25→17:40)
[2018-10-09] MEDS: BLOOD SUGAR DIAGNOSTIC 1 EACH STRIP IN SCH ×4 (09:25→22:13)
[2018-10-09] MEDS: CEFTRIAXONE 1 G in IV D5W 50 ML IV SCH (12:29)
[2018-10-09 15:53] VITALS: BP 95/72
[2018-10-09 16:00] VITALS: BP 105/80
--- NOTE | 2018-10-09 18:23 | NUR ---
PT BLOOD SUGAR ONLY 129. HELD NOVOLOG DOSE. HIGHEST READING. PREVIOUS READINGS HAVE BEEN LOW.
--- NOTE | 2018-10-09 18:37 | NUR ---
RN MS CLOSING NOTES PT IS RESTING COMFORTABLY IN BED WITH FAMILY AT BEDSIDE. PT DENIES ANY SOB OR PAIN AT PRESENT MOMENT. BED IS LOCKED AND IN LOWEST POSITION. PT DENIES ANY PAIN OR SOB AT PRESENT MOMENT. CALL LIGHT WITHIN REACH. WILL ENDORSE CONTINUITY OF CARE TO BPM SOLUTION ARCHITECT RN.
[2018-10-09 20:00] VITALS: BP 92/67
--- NOTE | 2018-10-09 20:04 | NUR ---
JAMIR RN OPENING NOTES RECEIVED BEDSIDE REPORT FROM AM SHIFT RN. PT IS A&O X4. PT DENIES ANY PAIN OR SOB AT THIS TIME . PT IS RESTING IN BED IN SEMI LAZCANO POSITION WITH FAMILY MEMBERS AT THE BEDSIDE. PT AMBULATES TO RESTROOM, WEIGHTING FOR CT HEAD. BED IS LOCKED AND IN LOWEST POSITION WITH CALL LIGHT IN REACH. WILL CONTINUE TO MONITOR PATIENT CLOSELY.
[2018-10-09] MEDS: INSULIN GLARGINE, 100 UNIT/ML CARTRIDGE SQ SCH (22:18)
[2018-10-09] MEDS: INSULIN REGULAR, HUMAN 100 UNIT/ML 3 ML VIAL SQ PRN (22:20)
[2018-10-10 04:00] VITALS: BP 98/72
--- NOTE | 2018-10-10 06:29 | NUR ---
RN NOTES PATIENT IS SLEEPING IN THE BED, WITHOUT DISTRESS, NO SOB AT THIS TIME, NO COMPLAIN OF PAIN OR ANY DISCOMFORT DURING MY SHIFT.WOUND CARE IS DONE. ALL NEEDS HAS BEEN ANTICIPATED. WILL ENDORSE TO AM SHIFT RN FOR SENIOR COBOL DEVELOPER.
[2018-10-10 06:36] VITALS: BP 98/72
[2018-10-10 07:28] LABS: BASOPHILS % (AUTO) 0.5 % (0.0-2.0); EOSINOPHILS % (AUTO) 0.5 % (0.0-6.0); HEMATOCRIT 49 % (39-51); HEMOGLOBIN 16.1 g/dL (13.5-17.5); LYMPHOCYTES # (AUTO) 2.1 /CMM (0.8-4.8); LYMPHOCYTES % (AUTO) 19.7 % (20.0-44.0); MEAN CORPUSCULAR HGB CONC 33 g/dl (31.0-36.0); MEAN CORPUSCULAR VOLUME 89 fL (80-96); MONOCYTES # (AUTO) 0.8 /CMM (0.1-1.30); MONOCYTES % (AUTO) 7.6 % (2.0-12.0); NEUTROPHILS # (AUTO) 7.7 /CMM (1.8-8.9); NEUTROPHILS % (AUTO) 71.7 % (43.0-81.0); PLATELET COUNT (AUTO) 149 /CMM (150-450); RED BLOOD CELL COUNT(AUTO) 5.55 MIL/uL (4.5-6.0); WHITE BLOOD COUNT (AUTO) 10.8 K/uL (4.3-11.0)
--- NOTE | 2018-10-10 07:30 | NUR ---
RN NOTES RECEIVED PATIENT IN BED, AWAKE, A/O X4, ABLE TO MAKE NEEDS KNOWN. WITH USE OF ACCESSORY MUSCLES ON BREATHING, ON OXYGEN SUPPORT VIA NASAL CANNULA AT 2 LPM, PATIENT DENIES ANY DISCOMFORT AT THIS TIME. ENCOURAGE TO VERBALIZE ANY FEELINGS AND CONCERNS. IV ACCESS ON THE LEFT UPPER ARM: MIDLINE- IN PLACE AND INTACT, PATENT ON FLUSHING. SAFETY ENSURED WITH SRX2, BED LOW AND LOCKED POSITION, CALL LIGHT PLACED WITHIN REACH. WILL CONTINUE TO MONITOR PATIENT
[2018-10-10 07:56] LABS: CALCIUM, SERUM 8.5 mg/dL (8.5-10.1); CREATININE 1.5 mg/dL (0.6-1.3); MAGNESIUM 2.4 mg/dL (1.8-2.4); POTASSIUM 4.4 mmol/L (3.5-5.1)
[2018-10-10 08:00] VITALS: BP_SYST 101; BP_SYST 108; BP_DIAS 68; BP_DIAS 76
[2018-10-10] MEDS: BLOOD SUGAR DIAGNOSTIC 1 EACH STRIP IN SCH ×4 (08:39→22:08)
[2018-10-10] MEDS: PANTOPRAZOLE 40 MG TABLET.DR PO SCH (08:40)
[2018-10-10] MEDS: LACTOBACILLUS RHAMNOSUS GG 1 EACH CAP.SPRINK PO SCH ×2 (08:40→17:48)
[2018-10-10] MEDS: GLUCERNA SHAKE 237 ML CAN PO SCH ×2 (08:40→17:51)
[2018-10-10] MEDS: INSULIN ASPART/LISPRO 100 UNIT/ML CARTRIDGE SQ SCH ×2 (08:41→17:52)
--- NOTE | 2018-10-10 09:00 | NUR ---
RN NOTES RADIOLOGY CALLED, CONCERN AND WANTED CONFIRMATION IF PATIENT IS OKAY TO GO TO CT OF THE CHEST ABDOMEN AND PELVIS WITH CONTRAST DESPITE HIGH BUN AND CREATININE. RELAYED MESSAGE TO DR MARIE, AWAITING FOR RESPONSE.
--- NOTE | 2018-10-10 10:00 | NUR ---
RN SUMEET PATTERSON FRAME AND SCRAP CRUSHER AT BEDSIDE, RELAYED RADIOLOGY CONCERNS. LATER VERBALIZED "THAT PROCEDURE WAS ALREADY GIVEN GO SIGNAL BY THE PASSENGER SERVICE AGENT" PATIENT ALSO HAVE VERBALIZED THAT DR. MCCRAY HAVE TOLD HIM THAT "MY KIDNEY FUNCTION HAS IMPROVED". INFORMATION THEN RELAYED TO RADIOLOGY DEPARTMENT.
[2018-10-10] MEDS ORDERED: DIATR MEGLU/DIATRIZOATE SODIUM 30 ML BOTTLE (GASTROGRAPHIN) ONE (10:18)
[2018-10-10] MEDS ORDERED: IV NS 0.9% 500 ML IV ONE (11:00)
--- NOTE | 2018-10-10 11:15 | NUR ---
RN NOTES CONSENT FOR PROCEDURE: CT OF THE CHEST, ABDOMEN, PELVIS OBTAINED FROM THE PATIENT. NIECE AT BEDSIDE DURING SIGNING.
[2018-10-10 12:00] VITALS: BP 108/76
[2018-10-10] MEDS: CEFTRIAXONE 1 G in IV D5W 50 ML IV SCH (12:21)
[2018-10-10] MEDS ORDERED: IV NS 0.9% 250 ML IV ONE (12:40)
[2018-10-10] MEDS ORDERED: CT SWABBABLE VALVE TRANS SET 1 EA INFUS.SET MC ONE (12:40)
[2018-10-10] MEDS ORDERED: IOHEXOL-300 100 ML VIAL IV ONE (12:40)
[2018-10-10] MEDS: VANCOMYCIN 1 GM in IV D5W 250 ML IV SCH (15:25)
[2018-10-10 16:01] VITALS: BP 115/84
--- NOTE | 2018-10-10 19:25 | NUR ---
RN NOTES ENDORSED PATIENT FOR CONTINUITY OF CARE. NOT ON ANY FORM OF DISTRESS. NO ACUTE CHANGES WITHIN THE SHIFT. ALL NURSING NEEDS ATTENDED AND MET. SAFETY MEASURES IN PLACE AT ALL TIMES. CALL LIGHT PLACED WITHIN REACH
--- NOTE | 2018-10-10 19:49 | NUR ---
JAMIR RN OPENING NOTES RECEIVED BEDSIDE REPORT FROM AM SHIFT RN. PT IS A&O X4. PT DENIES ANY PAIN OR SOB AT THIS TIME . PT IS RESTING IN BED IN SEMI LAZCANO POSITION WITH FAMILY FRIEND AT THE BEDSIDE. PT AMBULATES TO RESTROOM WITH ASSIST. BED IS LOCKED AND IN LOWEST POSITION WITH CALL LIGHT IN REACH. WILL CONTINUE TO MONITOR PATIENT CLOSELY.
[2018-10-10 20:00] VITALS: BP 100/71
[2018-10-10] MEDS: ACETYLCYSTEINE 20% ORAL SOLN 6,000 MG/30 ML VIAL PO SCH (21:06)
[2018-10-10] MEDS: INSULIN GLARGINE, 100 UNIT/ML CARTRIDGE SQ SCH (22:00)
--- NOTE | 2018-10-10 22:20 | NUR ---
RN NOTES PATIENT'S BLOOD SUGAR IS 42 AT 2200 AND INSULIN LANTUS 20 UNIT HAS BEEN HELD. WILL CONTINUE TO MONITOR AND RECHECK PATIENT'S BLOOD SUGAR LEVEL AGAIN.
--- NOTE | 2018-10-10 23:44 | NUR ---
RN NOTES PATIENT'S BLOOD SUGAR HAS BEEN RECHECKED AND IT'S 99.NO SOB NO DIAPHORESIS NOTED AT THIS TIME. WILL CONTINUE TO MONITOR PATIENT CLOSELY.
[2018-10-11 04:00] VITALS: BP 104/74
[2018-10-11 06:28] LABS: BASOPHILS % (AUTO) 0.3 % (0.0-2.0); EOSINOPHILS % (AUTO) 0.8 % (0.0-6.0); HEMATOCRIT 47 % (39-51); HEMOGLOBIN 15.5 g/dL (13.5-17.5); LYMPHOCYTES # (AUTO) 1.2 /CMM (0.8-4.8); LYMPHOCYTES % (AUTO) 15.8 % (20.0-44.0); MEAN CORPUSCULAR HGB CONC 33 g/dl (31.0-36.0); MEAN CORPUSCULAR VOLUME 89 fL (80-96); MONOCYTES # (AUTO) 0.6 /CMM (0.1-1.30); MONOCYTES % (AUTO) 7.4 % (2.0-12.0); NEUTROPHILS # (AUTO) 5.8 /CMM (1.8-8.9); NEUTROPHILS % (AUTO) 75.7 % (43.0-81.0); PLATELET COUNT (AUTO) 138 /CMM (150-450); RED BLOOD CELL COUNT(AUTO) 5.28 MIL/uL (4.5-6.0); WHITE BLOOD COUNT (AUTO) 7.6 K/uL (4.3-11.0)
--- NOTE | 2018-10-11 06:38 | NUR ---
RN NOTES PATIENT IS SLEEPING IN THE BED, WITHOUT DISTRESS, NO SOB AT THIS TIME, NO COMPLAIN OF PAIN OR ANY DISCOMFORT DURING MY SHIFT.PATIENT REFUSED WOUND CARE BY SAYING THAT IT IS GOOD AND WANTS IT TO BE DONE IN THE MORNING. ALL NEEDS HAS BEEN ANTICIPATED. WILL ENDORSE TO AM SHIFT RN FOR LABEL CODER.
[2018-10-11 07:04] LABS: CALCIUM, SERUM 8.3 mg/dL (8.5-10.1); CREATININE 1.5 mg/dL (0.6-1.3); POTASSIUM 4.3 mmol/L (3.5-5.1)
--- NOTE | 2018-10-11 07:10 | NUR ---
RN MS OPENING NOTES RECEIVED REPORT FROM MINER RN. PT IS RESTING IN BED IN SEMI LAZCANO POSITION. PT DENIES ANY SOB OR PAIN AT PRESENT MOMENT. PT IS A&O X4 AMBULATES. PT HAS A R HAND IV 20 GAUGE SL. PT IS ABLE TO MAKE NEEDS KNOWN. BED IS LOCKED AND IN LOWEST POSITION WITH CALL LIGHT IN REACH. WILL CONTINUE TO MONITOR.
[2018-10-11 08:00] VITALS: BP 105/74
[2018-10-11] MEDS: PANTOPRAZOLE 40 MG TABLET.DR PO SCH (08:10)
[2018-10-11] MEDS: LACTOBACILLUS RHAMNOSUS GG 1 EACH CAP.SPRINK PO SCH ×2 (08:10→17:42)
[2018-10-11] MEDS: BLOOD SUGAR DIAGNOSTIC 1 EACH STRIP IN SCH ×4 (08:10→21:10)
[2018-10-11] MEDS: GLUCERNA SHAKE 237 ML CAN PO SCH ×2 (08:10→17:43)
[2018-10-11] MEDS: INSULIN ASPART/LISPRO 100 UNIT/ML CARTRIDGE SQ SCH ×2 (09:00→18:30)
[2018-10-11] MEDS: ACETYLCYSTEINE 20% ORAL SOLN 6,000 MG/30 ML VIAL PO SCH ×2 (09:03→17:42)
[2018-10-11] MEDS: FUROSEMIDE 40 MG/4 ML VIAL IV SCH ×3 (10:01→17:42)
[2018-10-11] MEDS: CEFTRIAXONE 1 G in IV D5W 50 ML IV SCH (11:47)
[2018-10-11 12:00] VITALS: BP 105/74
[2018-10-11 16:00] VITALS: BP 100/67
[2018-10-11] MEDS: INSULIN REGULAR, HUMAN 100 UNIT/ML 3 ML VIAL SQ PRN ×2 (18:12→21:11)
--- NOTE | 2018-10-11 18:34 | NUR ---
PT RECEIVED 4 UNITS OF INSULIN. NON ADMIN 8 UNITS OF NOVOLOG DUE TO PRIOR ADMINISTRATION OF INSULIN.
--- NOTE | 2018-10-11 18:35 | NUR ---
PT SITTING UPRIGHT IN BED WITH FAMILY BEDSIDE. PT IS A&OX4. PT DENIES ANY PAIN OR SOB AT PRESENT MOMENT. PT IS IN BED WITH LOWER EXTREMITIES ELEVATED. BED IS LOCKED AND IN LOWEST POSITION WITH CALL LIGHT IN REACH. WILL ENDORSE CONTINUITY OF CARE TO ROUTE INSPECTOR RN.
--- NOTE | 2018-10-11 19:10 | NUR ---
MS/RN INITIAL NOTES RECEIVED PT SITTING IN BED, FAMILY AT BEDSIDE. ON 2L O2 VIA NC, NO SOB NOTED. PT STATES, "I'M FEELING BETTER." NO C/O PAIN AT THIS TIME. AYLA Norton HEPLOCK PATENT, C/D/I. SAFETY MEASURES IN PLACED. CALL LIGHT WITHIN EASY REACH. WILL CONT TO MONITOR PT
[2018-10-11 20:00] VITALS: BP 100/73
[2018-10-11] MEDS: INSULIN GLARGINE, 100 UNIT/ML CARTRIDGE SQ SCH (21:12)
[2018-10-12] MEDS: VANCOMYCIN 1 GM in IV D5W 250 ML IV SCH (01:33)
[2018-10-12 04:00] VITALS: BP 90/65
--- NOTE | 2018-10-12 06:41 | NUR ---
RN NOTES PT IN STABLE CONDITION. NO ACUTE CHANGES THROUGHOUT SHIFT. SAFETY MEASURES AND ASPIRATION PRECAUTION OBSERVED AT ALL TIMES. ALL NEEDS ANTICIPATED. ENDORSED TO AM RN FOR USHA
--- NOTE | 2018-10-12 07:15 | NUR ---
RN MS OPENING NOTES RECEIVED REPORT FROM RECORDS SECTION SUPERVISOR RN. PT IS A&O X 4. PT IS RESTING IN BED WITH CALL LIGHT IN REACH. BED IS LOCKED AND IN LOWEST POSITION. PT HAS NC ON WITH 2L OF O2. WILL CONTINUE TO MONITOR.
[2018-10-12 07:27] LABS: BASOPHILS % (AUTO) 0.4 % (0.0-2.0); EOSINOPHILS % (AUTO) 0.8 % (0.0-6.0); HEMATOCRIT 44 % (39-51); HEMOGLOBIN 14.7 g/dL (13.5-17.5); LYMPHOCYTES # (AUTO) 1.1 /CMM (0.8-4.8); LYMPHOCYTES % (AUTO) 16.5 % (20.0-44.0); MEAN CORPUSCULAR HGB CONC 33 g/dl (31.0-36.0); MEAN CORPUSCULAR VOLUME 89 fL (80-96); MONOCYTES # (AUTO) 0.6 /CMM (0.1-1.30); MONOCYTES % (AUTO) 8.5 % (2.0-12.0); NEUTROPHILS # (AUTO) 4.8 /CMM (1.8-8.9); NEUTROPHILS % (AUTO) 73.8 % (43.0-81.0); PLATELET COUNT (AUTO) 127 /CMM (150-450); RED BLOOD CELL COUNT(AUTO) 4.94 MIL/uL (4.5-6.0); WHITE BLOOD COUNT (AUTO) 6.6 K/uL (4.3-11.0)
[2018-10-12 07:48] LABS: CREATININE 1.4 mg/dL (0.6-1.3); POTASSIUM 3.5 mmol/L (3.5-5.1)
[2018-10-12 08:00] VITALS: BP_SYST 118; BP_SYST 98; BP_DIAS 60; BP_DIAS 81
[2018-10-12] MEDS: LACTOBACILLUS RHAMNOSUS GG 1 EACH CAP.SPRINK PO SCH ×2 (08:11→16:55)
[2018-10-12] MEDS: BLOOD SUGAR DIAGNOSTIC 1 EACH STRIP IN SCH ×4 (08:11→21:21)
[2018-10-12] MEDS: GLUCERNA SHAKE 237 ML CAN PO SCH ×2 (08:11→16:56)
[2018-10-12] MEDS: PANTOPRAZOLE 40 MG TABLET.DR PO SCH (08:12)
[2018-10-12] MEDS: ACETYLCYSTEINE 20% ORAL SOLN 6,000 MG/30 ML VIAL PO SCH ×2 (08:12→16:55)
[2018-10-12] MEDS: INSULIN ASPART/LISPRO 100 UNIT/ML CARTRIDGE SQ SCH ×2 (08:16→18:21)
[2018-10-12] MEDS: FUROSEMIDE 40 MG/4 ML VIAL IV SCH ×3 (10:07→18:08)
[2018-10-12] MEDS: POTASSIUM CHLORIDE 20 MEQ TAB.PRT.SR PO SCH ×3 (10:08→12:04)
[2018-10-12] MEDS: CEFTRIAXONE 1 G in IV D5W 50 ML IV SCH (12:04)
[2018-10-12] MEDS: INSULIN REGULAR, HUMAN 100 UNIT/ML 3 ML VIAL SQ PRN ×2 (12:30→22:52)
[2018-10-12 16:00] VITALS: BP 91/71
--- NOTE | 2018-10-12 18:35 | NUR ---
RN MS CLOSING NOTES PT IS SITTING IN BED WATCHING TELEVISION. PT DENIES ANY PAIN AT PRESENT MOMENT AND SOB. PT HAS A 20 GAUGE IN RIGHT HAND SL. BED IS LOCKED AND IN LOWEST POSITION. CALL LIGHT WITHIN REACH. PT HAS NC ON RUNNING 2L O2. WILL ENDORSE CONTINUITY OF CARE TO MANAGER MINING RN.
--- NOTE | 2018-10-12 19:44 | NUR ---
RN MS OPENING NOTES RECEIVED PATIENT IN BED AWAKE, ALERT AND ORIENTED X4, VERBALLY RESPONSIVE, ABLE TO MAKE NEEDS KNOWN. BREATHING EVEN AND UNLABORED. NO SOB NOTED. ON 2LPM OXYGEN VIA NC. TOLERATING WELL. NO COMPLAINTS OF PAIN OR DISCOMFORT. IV ON RIGHT HAND INTACT AND PATENT. SKIN DRY AND WARM TO TOUCH. AFEBRILE. ALL OTHER NEEDS MET. SAFETY MEASURES IN PLACE. CALL LIGHT WITHIN REACH. WILL CONTINUE TO MONITOR.
[2018-10-12 20:48] VITALS: BP 99/68
[2018-10-12] MEDS: INSULIN GLARGINE, 100 UNIT/ML CARTRIDGE SQ SCH (21:23)
[2018-10-13 04:00] VITALS: BP 104/72
[2018-10-13 04:28] VITALS: BP 104/72
[2018-10-13] MEDS: BLOOD SUGAR DIAGNOSTIC 1 EACH STRIP IN SCH ×4 (06:33→21:53)
[2018-10-13] MEDS: INSULIN REGULAR, HUMAN 100 UNIT/ML 3 ML VIAL SQ PRN (06:34)
--- NOTE | 2018-10-13 06:47 | NUR ---
RN MS CLOSING NOTES PATIENT RESTING IN BED. NO ACUTE CHANGES THROUGHOUT SHIFT. BREATHING EVEN AND UNLABORED. NO SOB NOTED. ON 2LPM OXYGEN VIA NC. TOLERATING WELL. NO COMPLAINTS OF PAIN OR DISCOMFORT. IV ON RIGHT HAND INTACT AND PATENT. ALL DRESSINGS CHANGED - CURRENTLY CLEAN, DRY, AND INTACT. ALL OTHER NEEDS MET. SAFETY MEASURES IN PLACE. CALL LIGHT WITHIN REACH. WILL ENDORSE TO ONCOMING NURSE FOR USHA.
[2018-10-13 07:48] LABS: BASOPHILS % (AUTO) 0.4 % (0.0-2.0); EOSINOPHILS % (AUTO) 0.6 % (0.0-6.0); HEMATOCRIT 45 % (39-51); HEMOGLOBIN 14.7 g/dL (13.5-17.5); LYMPHOCYTES # (AUTO) 1.5 /CMM (0.8-4.8); LYMPHOCYTES % (AUTO) 20.2 % (20.0-44.0); MEAN CORPUSCULAR HGB CONC 33 g/dl (31.0-36.0); MEAN CORPUSCULAR VOLUME 90 fL (80-96); MONOCYTES # (AUTO) 0.6 /CMM (0.1-1.30); MONOCYTES % (AUTO) 8.5 % (2.0-12.0); NEUTROPHILS # (AUTO) 5.2 /CMM (1.8-8.9); NEUTROPHILS % (AUTO) 70.3 % (43.0-81.0); PLATELET COUNT (AUTO) 134 /CMM (150-450); RED BLOOD CELL COUNT(AUTO) 4.93 MIL/uL (4.5-6.0); WHITE BLOOD COUNT (AUTO) 7.4 K/uL (4.3-11.0)
[2018-10-13 07:58] LABS: CREATININE 1.5 mg/dL (0.6-1.3); POTASSIUM 3.1 mmol/L (3.5-5.1)
[2018-10-13 08:00] VITALS: BP 102/77
[2018-10-13] MEDS ORDERED: POTASSIUM CHLORIDE 20 MEQ TAB.PRT.SR PO ONE (08:30)
[2018-10-13] MEDS: GLUCERNA SHAKE 237 ML CAN PO SCH ×2 (08:33→17:41)
[2018-10-13] MEDS: LACTOBACILLUS RHAMNOSUS GG 1 EACH CAP.SPRINK PO SCH ×2 (08:33→17:40)
[2018-10-13] MEDS: PANTOPRAZOLE 40 MG TABLET.DR PO SCH (08:33)
[2018-10-13] MEDS: INSULIN ASPART/LISPRO 100 UNIT/ML CARTRIDGE SQ SCH ×2 (09:22→18:44)
[2018-10-13 12:00] VITALS: BP 102/77
[2018-10-13] MEDS: CEFTRIAXONE 1 G in IV D5W 50 ML IV SCH (12:40)
--- NOTE | 2018-10-13 14:05 | NUR ---
RN NOTE CT BIOPSY WAS OK FROM SADIA ABARCA BIOPSY WITHOUT CONTRAST. HEMOTOLOGY MD SPOKE WITH RADIOLOGY WHO STATED THEY ARE NOT COMFORTABLE PERFORMING CT GUIDED BIOPSY DUE TO THE LUNG LESIONS BEING TO SMALL. AWAITING NEW ORDERS AT THIS TIME.
[2018-10-13 16:00] VITALS: BP 102/69
[2018-10-13] MEDS: VANCOMYCIN 1 GM in IV D5W 250 ML IV SCH (17:24)
--- NOTE | 2018-10-13 19:10 | NUR ---
RN M/S NOTE PATIENT IS AOX3, SPEECH CLEAR ABLE TO MAKE NEEDS KNOWN, DENIES PAIN, ON O2 2L VIA NC, NO S/SX OF RESPIRATORY OR CARDIAC DISTRESS, SKIN KEPT DRY AND INTACT, ON BEDREST, R HAND #20G SL, PATENT FLUSHING WELL, SKIN KEPT CLEAN AND DRY, SAFETY MAINTAINED AT ALL TIMES, BED IN LOW LOCKED POSITION, CALL LIGHT WITHIN REACH, WILL CONTINUE TO MONITOR FOR ANY CHANGES IN CONDITION.
[2018-10-13] MEDS: LEVOFLOXACIN (500MG) 500 MG TABLET PO SCH (19:35)
[2018-10-13 20:00] VITALS: BP 108/71
--- NOTE | 2018-10-13 21:40 | NUR ---
RN M/S NOTE PT GLUCOSE 58 PT REFUSED DEXTROSE, PT GIVEN SNACKS, PT TOLERATING WELL, WILL RECHECK GLUCOSE AND MONITOR FOR S/SX OF HYPOGLYCEMIA, LANTUS NOT ADMINISTERED DUE TO RISK FOR HYPOGLYCEMIA. WILL CONTINUE TO MONITOR PT.
[2018-10-13] MEDS ORDERED: FUROSEMIDE 40 MG/4 ML VIAL IV ONE (21:45)
--- NOTE | 2018-10-13 21:45 | NUR ---
RN M/S NOTE PT C/O SOB WHEN RESTING IN BED, HOB LEEVATED, ON 2L O2, 98% RA O2 SAT, PT STATES DIURETIC WAS HELPFUL FEW DAYS AGO WHEN HAD SAME ISSUE, CALL TO WENDY JACKSON MD, FOR NEW ORDER OF LASIX 40MG X 1 IV, WILL CONTINUE TO MONITOR PT.
[2018-10-13] MEDS: DOXYCYCLINE HYCLATE (100 MG) 100 MG TABLET PO SCH (21:52)
[2018-10-13] MEDS: INSULIN GLARGINE, 100 UNIT/ML CARTRIDGE SQ SCH (21:54)
[2018-10-14 04:00] VITALS: BP 94/50
[2018-10-14 06:58] LABS: BASOPHILS % (AUTO) 0.7 % (0.0-2.0); EOSINOPHILS % (AUTO) 0.9 % (0.0-6.0); HEMATOCRIT 43 % (39-51); LYMPHOCYTES # (AUTO) 1.3 /CMM (0.8-4.8); LYMPHOCYTES % (AUTO) 19.9 % (20.0-44.0); MEAN CORPUSCULAR HGB CONC 33 g/dl (31.0-36.0); MEAN CORPUSCULAR VOLUME 89 fL (80-96); MONOCYTES # (AUTO) 0.5 /CMM (0.1-1.30); MONOCYTES % (AUTO) 8.1 % (2.0-12.0); NEUTROPHILS # (AUTO) 4.7 /CMM (1.8-8.9); NEUTROPHILS % (AUTO) 70.4 % (43.0-81.0); PLATELET COUNT (AUTO) 121 /CMM (150-450); RED BLOOD CELL COUNT(AUTO) 4.81 MIL/uL (4.5-6.0); WHITE BLOOD COUNT (AUTO) 6.7 K/uL (4.3-11.0)
[2018-10-14 07:11] LABS: CALCIUM, SERUM 8.1 mg/dL (8.5-10.1); CREATININE 1.4 mg/dL (0.6-1.3); POTASSIUM 3.5 mmol/L (3.5-5.1)
--- NOTE | 2018-10-14 07:41 | NUR ---
RN/MS NOTES RECEIVED PATIENT ALOX X3 ON N/C RUNNING 2L WITH GOOD SATURATION. NO SOB, PATIENT HAS A HEP LOCK IN THE RIGHT HAND 20G SL FLUSHED WELL, NO S/S OF INFECTION. LOWER EXTREMITIES HAVE EDEMA, +3 WILL KEEP LEGS ELEVATED. BLOOD SUGAR WAS CHECKED AND FOUND TO BE 160. POC DISCUSSED WITH PATIENT, BED LOCKED IN LOWEST POSITION W/ CALL LIGHT IN REACH. WILL CONTINUE TO MONITOR.
[2018-10-14 08:00] VITALS: BP 101/72
[2018-10-14] MEDS: PANTOPRAZOLE 40 MG TABLET.DR PO SCH (08:04)
[2018-10-14] MEDS: LACTOBACILLUS RHAMNOSUS GG 1 EACH CAP.SPRINK PO SCH ×2 (08:04→16:26)
[2018-10-14] MEDS: GLUCERNA SHAKE 237 ML CAN PO SCH ×2 (08:05→17:00)
[2018-10-14] MEDS: DOXYCYCLINE HYCLATE (100 MG) 100 MG TABLET PO SCH ×2 (08:08→21:07)
[2018-10-14] MEDS: INSULIN REGULAR, HUMAN 100 UNIT/ML 3 ML VIAL SQ PRN ×4 (08:10→16:48)
[2018-10-14] MEDS: BLOOD SUGAR DIAGNOSTIC 1 EACH STRIP IN SCH ×4 (08:20→21:07)
[2018-10-14] MEDS: INSULIN ASPART/LISPRO 100 UNIT/ML CARTRIDGE SQ SCH ×2 (08:53→18:17)
[2018-10-14] MEDS ORDERED: FUROSEMIDE 40 MG TABLET PO SCH (09:00)
[2018-10-14] MEDS ORDERED: POTASSIUM CHLORIDE 10 MEQ TABLET.SA PO SCH (09:00)
--- NOTE | 2018-10-14 09:11 | NUR ---
MS/RN SPOKE TO DR. DOWNING ABOUT LASIX AND POTASSIUM ORDER, WAS TOLD TO GIVE ORDERED AND MONITOR. BLOOD PRESSURE WAS 101/72 SAID TO GIVE.
[2018-10-14] MEDS: POTASSIUM CHLORIDE 20 MEQ TAB.PRT.SR PO SCH ×3 (09:27→11:24)
[2018-10-14] MEDS: FUROSEMIDE 40 MG/4 ML VIAL IV SCH ×3 (09:28→16:26)
[2018-10-14 12:00] VITALS: BP 93/56
--- NOTE | 2018-10-14 13:26 | NUR ---
MS RN NOTE SPOKE WITH DR DAVIS NOTIFIED THAT PER CHF PROTOCOL PATIENT NEEDS MARCELLA INHIBITOR MEDS OR BETA BARBRA, ECHO DONE 35% EF, STATED THAT PATIENT CANT TOLERATE THIS MEDS ,PATIENT HAS LOW BP AT THIS TIME, RUNS FROM SBP 101/72 -93/54 STATED THAT WILL ADDRESS THIS IN HER NOTES
--- NOTE | 2018-10-14 15:38 | NUR ---
MS RN NOTE ABLE TO AMBULATE WELL IN ROOM ,URINATE WELL HAD A LASIX IV BEFORE
[2018-10-14 16:00] VITALS: BP 89/65
[2018-10-14 16:08] VITALS: BP 89/65
--- NOTE | 2018-10-14 18:31 | NUR ---
MS/RN NOTES WOUND TREATMENT COMPLETED ORDERED, PATIENT TOLERATED WELL, WOUNDS HEALING ON BLE AND BUE. WILL CONTINUE TO MONITOR.
--- NOTE | 2018-10-14 18:32 | NUR ---
MS/RN NOTES PATIENT BEING ENDORSED TO NIGHT NURSE, VITAL SIGNS STABLE, PATIENT LOC X4, 20 OJ IV STILL IN R HAND FLUSHING WELL, NO S/S OF INFECTION OR INFILTRATION PRESENT. PATIENT WAS GIVEN ALL ORDERED PRESCRIBED, TOLERATED ALL TREATMENTS WELL. PATIENT FAMILY AT BEDSIDE, PATIENT IS IN GOOD SPIRITS AND HAS NO COMPLAINTS. NIGHT NURSE WILL CONTINUE CARE ORDERED.
[2018-10-14] MEDS: LEVOFLOXACIN (500MG) 500 MG TABLET PO SCH (19:01)
--- NOTE | 2018-10-14 19:05 | NUR ---
RN M/S NOTE PATIENT IS AOX3, RESTING IN BED, FRIENDS AT BEDSIDE, SPEECH CLEAR, ABLE TO MAKE NEEDS KNOWN, DENIES PAIN, ON O2 2L VIA NC, NO S/SX OF RESPIRATORY OR CARDIAC DISTRESS, SKIN KEPT DRY AND INTACT, R HAND #20G SL, PATENT FLUSHING WELL, SKIN KEPT CLEAN AND DRY, SAFETY MAINTAINED AT ALL TIMES, BED IN LOW LOCKED POSITION, CALL LIGHT WITHIN REACH, WILL CONTINUE TO MONITOR FOR ANY CHANGES IN CONDITION.
[2018-10-14 20:00] VITALS: BP 97/65
[2018-10-14] MEDS: INSULIN GLARGINE, 100 UNIT/ML CARTRIDGE SQ SCH (21:10)
[2018-10-14] MEDS: *INSULIN REGULAR(HUMULIN R)HUM 100 UNIT/ML VIAL SQ PRN (21:11)
[2018-10-15 04:00] VITALS: BP 101/72
[2018-10-15 07:20] LABS: BASOPHILS % (AUTO) 0.4 % (0.0-2.0); EOSINOPHILS % (AUTO) 0.8 % (0.0-6.0); HEMATOCRIT 42 % (39-51); HEMOGLOBIN 13.8 g/dL (13.5-17.5); LYMPHOCYTES # (AUTO) 1.4 /CMM (0.8-4.8); MEAN CORPUSCULAR HGB CONC 33 g/dl (31.0-36.0); MEAN CORPUSCULAR VOLUME 90 fL (80-96); MONOCYTES # (AUTO) 0.6 /CMM (0.1-1.30); MONOCYTES % (AUTO) 9.1 % (2.0-12.0); NEUTROPHILS # (AUTO) 4.2 /CMM (1.8-8.9); NEUTROPHILS % (AUTO) 66.7 % (43.0-81.0); PLATELET COUNT (AUTO) 128 /CMM (150-450); RED BLOOD CELL COUNT(AUTO) 4.66 MIL/uL (4.5-6.0); WHITE BLOOD COUNT (AUTO) 6.3 K/uL (4.3-11.0)
[2018-10-15] MEDS: BLOOD SUGAR DIAGNOSTIC 1 EACH STRIP IN SCH ×4 (07:44→21:04)
[2018-10-15] MEDS: PANTOPRAZOLE 40 MG TABLET.DR PO SCH (07:44)
[2018-10-15 08:00] VITALS: BP 107/78
[2018-10-15 08:04] LABS: ALBUMIN 2.2 g/dL (3.4-5.0); BILIRUBIN,TOTAL 0.9 mg/dL (0.2-1.0); CALCIUM, SERUM 8.2 mg/dL (8.5-10.1); CREATININE 1.7 mg/dL (0.6-1.3); MAGNESIUM 1.7 mg/dL (1.8-2.4); PHOSPHORUS 2.9 mg/dL (2.5-4.9); POTASSIUM 3.7 mmol/L (3.5-5.1)
[2018-10-15] MEDS: LACTOBACILLUS RHAMNOSUS GG 1 EACH CAP.SPRINK PO SCH ×2 (08:16→17:54)
[2018-10-15] MEDS: DOXYCYCLINE HYCLATE (100 MG) 100 MG TABLET PO SCH ×2 (08:16→21:04)
[2018-10-15] MEDS: INSULIN ASPART/LISPRO 100 UNIT/ML CARTRIDGE SQ SCH ×2 (08:24→17:50)
[2018-10-15 08:26] VITALS: BP 107/78
[2018-10-15] MEDS: GLUCERNA SHAKE 237 ML CAN PO SCH ×2 (08:45→17:55)
--- NOTE | 2018-10-15 09:58 | NUR ---
MS RN OPENING NOTE PATIENT RECEIVED IN BED AWAKE IN SEMI-FOWLERS. AOX3, NO SOB OR S/S OF DISTRESS. ABLE TO MAKE NEEDS KNOWN, DENIES PAIN, ON O2 2L VIA NC, SKIN DRY AND INTACT, R HAND #20G SL INTACT AND PATENT. SAFETY MEASURES IN PLACE. BED IN LOW LOCKED POSITION, CALL LIGHT WITHIN REACH, WILL CONTINUE TO MONITOR FOR ANY CHANGES IN CONDITION.
[2018-10-15] MEDS ORDERED: Magnesium 1GM/D5W 100ML PREMIX 100 ML IV SCH ×2 (10:55→13:41)
--- NOTE | 2018-10-15 11:43 | NUR ---
MS RN NOTE PATIENT TRANSFERRED TO 3RD FLOOR MS ROOM 317. PATIENT TAKEN TO NEW ROOM VIA BED WITH RN AND RN STUDENT. PATIENT CHART AND BELONGINGS ALL TAKEN WITH PATIENT. ROMANA BLAKE RECEIVED REPORT FROM ROMANA URBINA. PATIENT STABLE AND ALERT UPON TRANSFER COMPLETION.
--- NOTE | 2018-10-15 11:45 | NUR ---
RECEIVED PATIENT FROM JAMIR. ADM.TO ROOM 317 FOR R/O TB. VS ARE STABLE. IV LINE INTACT AND PATENT
[2018-10-15 12:00] VITALS: BP 97/72
[2018-10-15] MEDS: INSULIN REGULAR, HUMAN 100 UNIT/ML 3 ML VIAL SQ PRN (12:04)
--- NOTE | 2018-10-15 14:00 | NUR ---
PAGED DR DAVIS TO INFORM THAT FAMILY WANTS TO CONTACT HER.
[2018-10-15] MEDS: POTASSIUM CHLORIDE 20 MEQ TAB.PRT.SR PO SCH ×3 (15:35→17:55)
[2018-10-15] MEDS: FUROSEMIDE 40 MG/4 ML VIAL IV SCH ×3 (15:36→21:04)
[2018-10-15 16:00] VITALS: BP_SYST 100; BP_SYST 146; BP_DIAS 73; BP_DIAS 90
--- NOTE | 2018-10-15 19:00 | NUR ---
PATIENT HAS SEEN BY DR. DAVIS
[2018-10-15] MEDS: LEVOFLOXACIN (500MG) 500 MG TABLET PO SCH (19:05)
--- NOTE | 2018-10-15 19:13 | NUR ---
PATIENT IN BED RESTING. PATIENT IN STABLE CONDITION. ALL NEEDS ATTENDED, SAFETY PRECAUTIONS IN PLACE . POSSIBLE D/C FOR TOMORROW. WILL ENDORSE TO NEXT SHIFT FOR USHA.
--- NOTE | 2018-10-15 19:51 | NUR ---
rn pm opening note. patient seen in bed in no distress. reviewed poc. questions concerns addressed. verbalized uncerstanding to call for assistance as needed. bed down locked sr x2 call light and belongings in reach.
[2018-10-15 20:00] VITALS: BP 100/66
[2018-10-15] MEDS: INSULIN GLARGINE, 100 UNIT/ML CARTRIDGE SQ SCH (21:22)
[2018-10-16] MEDS: BLOOD SUGAR DIAGNOSTIC 1 EACH STRIP IN SCH ×4 (07:05→21:31)
[2018-10-16 07:35] LABS: BASOPHILS % (AUTO) 0.3 % (0.0-2.0); EOSINOPHILS % (AUTO) 0.5 % (0.0-6.0); HEMATOCRIT 42 % (39-51); LYMPHOCYTES # (AUTO) 1.4 /CMM (0.8-4.8); LYMPHOCYTES % (AUTO) 23.4 % (20.0-44.0); MEAN CORPUSCULAR HGB CONC 33 g/dl (31.0-36.0); MEAN CORPUSCULAR VOLUME 91 fL (80-96); MONOCYTES # (AUTO) 0.6 /CMM (0.1-1.30); MONOCYTES % (AUTO) 9.1 % (2.0-12.0); NEUTROPHILS # (AUTO) 4.1 /CMM (1.8-8.9); NEUTROPHILS % (AUTO) 66.7 % (43.0-81.0); PLATELET COUNT (AUTO) 121 /CMM (150-450); RED BLOOD CELL COUNT(AUTO) 4.62 MIL/uL (4.5-6.0); WHITE BLOOD COUNT (AUTO) 6.1 K/uL (4.3-11.0)
[2018-10-16 07:44] LABS: CALCIUM, SERUM 8.4 mg/dL (8.5-10.1); CREATININE 1.7 mg/dL (0.6-1.3); PHOSPHORUS 3.7 mg/dL (2.5-4.9); POTASSIUM 3.8 mmol/L (3.5-5.1)
[2018-10-16 08:00] VITALS: BP 102/75
[2018-10-16] MEDS: INSULIN ASPART/LISPRO 100 UNIT/ML CARTRIDGE SQ SCH ×2 (09:00→18:30)
[2018-10-16] MEDS ORDERED: BUMETANIDE INJ 8 MG in IV NS 0.9% 48 ML IV ONE (09:00)
[2018-10-16] MEDS: PANTOPRAZOLE 40 MG TABLET.DR PO SCH (10:01)
[2018-10-16] MEDS: LACTOBACILLUS RHAMNOSUS GG 1 EACH CAP.SPRINK PO SCH ×2 (10:02→18:08)
[2018-10-16] MEDS: DOXYCYCLINE HYCLATE (100 MG) 100 MG TABLET PO SCH (10:02)
[2018-10-16] MEDS: POTASSIUM CHLORIDE 20 MEQ TAB.PRT.SR PO SCH ×3 (10:05→12:08)
[2018-10-16] MEDS: GLUCERNA SHAKE 237 ML CAN PO SCH ×2 (10:11→17:50)
[2018-10-16] MEDS: *INSULIN REGULAR(HUMULIN R)HUM 100 UNIT/ML VIAL SQ PRN (13:33)
[2018-10-16 15:41] VITALS: BP 95/67
--- NOTE | 2018-10-16 16:29 | NUR ---
hay rn notes wound care provided and dressing changed. no drainage and no odor to BLE wound and coccyx. pt tolerated well. pt education provided. pt and family verbalize understanding. family at the bed side.
--- NOTE | 2018-10-16 17:52 | NUR ---
RN medsurbebe notes Contacted DR. Fernandez for anxiety medication. PT is very anxious at this time and asked for anxiety medication.
[2018-10-16] MEDS: INSULIN REGULAR, HUMAN 100 UNIT/ML 3 ML VIAL SQ PRN (17:56)
--- NOTE | 2018-10-16 18:30 | NUR ---
RN MS NOTES INSULIN NON ADMISTERED, PT HAD POOR APPETITE.
[2018-10-16] MEDS: ALPRAZOLAM 0.25 MG TABLET PO PRN (18:35)
--- NOTE | 2018-10-16 18:54 | NUR ---
rn christensurbebe closing notes Pt is alert and oriented x4. Pt is sitting at the bed side. pt blood glucose was 124. Pt only ate dinner half a meal. didn't administer insulin. PT complaint of anxiety. Contacted DR. Fernandez about anxiety PRN medication. Administered anxiety medication. PT looks relax and pt's family at the bed side. all medications has been given. Wound care and dressing changed provided. bed at low position and call light is within reach. Will endorse to PM nurse.
--- NOTE | 2018-10-16 19:30 | NUR ---
patient seen sitting up in bed wih feet dangling. . poc reviewed. family, friends at the bed side. patient states," I am doing alright I am just getting tired of this bed." poc reviewed questions concerns addressed. patient not a fall risk amb with steady gait. call light in reach bed down and locked. bumex infusing at 10 ml per hour to right hand with no s/s of infiltration. patient reports he is peeing regularly.
[2018-10-16 20:00] VITALS: BP 90/70
[2018-10-16] MEDS: INSULIN GLARGINE, 100 UNIT/ML CARTRIDGE SQ SCH (21:36)
--- NOTE | 2018-10-17 06:05 | NUR ---
rn pm closing note. (hypoglycemia) blood sugar check at 0545 revealed bs of 64. rechecked and still found to be bg of 67. patient denies feeling any different then he usually feels patient alert and oriented and acting appropriately, skin is mildly diaphoretic. patient given box of apple juice. patient blood sugar rechecked and now bg is 91. poc reviewed with patient as well as scheduled tests for this am. bed down locked srx2 denies any additional needs at this time. call light in reach. will endorse poc to day shift for lissy.
[2018-10-17 06:33] LABS: BASOPHILS % (AUTO) 0.3 % (0.0-2.0); EOSINOPHILS % (AUTO) 0.8 % (0.0-6.0); HEMATOCRIT 43 % (39-51); HEMOGLOBIN 15.1 g/dL (13.5-17.5); LYMPHOCYTES # (AUTO) 2.4 /CMM (0.8-4.8); LYMPHOCYTES % (AUTO) 33.3 % (20.0-44.0); MEAN CORPUSCULAR HGB CONC 35 g/dl (31.0-36.0); MEAN CORPUSCULAR VOLUME 96 fL (80-96); MONOCYTES # (AUTO) 0.6 /CMM (0.1-1.30); MONOCYTES % (AUTO) 8.1 % (2.0-12.0); NEUTROPHILS # (AUTO) 4.1 /CMM (1.8-8.9); NEUTROPHILS % (AUTO) 57.5 % (43.0-81.0); PLATELET COUNT (AUTO) 125 /CMM (150-450); WHITE BLOOD COUNT (AUTO) 7.1 K/uL (4.3-11.0)
[2018-10-17 06:54] LABS: ALBUMIN 2.3 g/dL (3.4-5.0); BILIRUBIN,TOTAL 1.1 mg/dL (0.2-1.0); CALCIUM, SERUM 8.4 mg/dL (8.5-10.1); CREATININE 1.8 mg/dL (0.6-1.3); MAGNESIUM 1.9 mg/dL (1.8-2.4); PHOSPHORUS 4.1 mg/dL (2.5-4.9); TOTAL PROTEIN, SERUM 6.3 g/dL (6.4-8.2)
[2018-10-17] MEDS: BLOOD SUGAR DIAGNOSTIC 1 EACH STRIP IN SCH ×4 (07:47→21:42)
--- NOTE | 2018-10-17 08:00 | NUR ---
MS RN NOTES PT ALERTED ORIENTED X 3. RESTING IN BED, NO SOB OR ACUTE DISTRESS NOTED. DENIES PAIN, PERIPHERAL IV INTACT AND PATENT.BED IN LOW LOCK POSITION, CALL LIGHT WITHIN REACH, PT IN AIRBORN ISOLATION. WILL CONTINUE TO MONITOR.
[2018-10-17 08:09] VITALS: BP 92/72
[2018-10-17] MEDS: INSULIN ASPART/LISPRO 100 UNIT/ML CARTRIDGE SQ SCH ×2 (09:00→18:13)
[2018-10-17] MEDS: PANTOPRAZOLE 40 MG TABLET.DR PO SCH (09:44)
[2018-10-17] MEDS: LACTOBACILLUS RHAMNOSUS GG 1 EACH CAP.SPRINK PO SCH ×2 (09:44→16:52)
[2018-10-17] MEDS: GLUCERNA SHAKE 237 ML CAN PO SCH ×2 (09:53→16:52)
--- NOTE | 2018-10-17 11:00 | NUR ---
MS RN NOTES PT BLOOD RESULTS CAME IN. PT OKAYED TO DC AIRBORN PRECAUTIONS.
[2018-10-17] MEDS: INSULIN REGULAR, HUMAN 100 UNIT/ML 3 ML VIAL SQ PRN (12:09)
[2018-10-17 14:13] LABS: ABG BASE EXCESS 1.1 mmol/L; ABG OXYGEN SATURATION 93.1 % (92.0-98.5); ABG PCO2 33.5 mmHg (35.0-45.0); ABG PH 7.475 (7.350-7.450); ABG PO2 63.3 mmHg (75.0-100.0); AaDO2 46.3 mmHg; COHb 0.9 % (0.5-1.5); MetHb 0.6 % (0.0-1.5); O2Hb 91.7 % (94.0-97.0); SITE, ABG Right Radial; VENT MODE, BG room air
[2018-10-17 15:54] VITALS: BP 98/70
--- NOTE | 2018-10-17 19:17 | NUR ---
MS RN CLOSING NOTES PT RESTING, NO SOB OR ACUTE DISTRESS NOTED. PT ALERT AND ORIENTED X4. ALL MEDICATIONS WERE GIVEN. WOUND CARE PERFORMED ON THE LEFT ARM, LEFT FOOT, AND RIGHT FOOT. BED LOWERED AND CALL LIGHT WITHIN REACH. ALL NEEDS MET.
[2018-10-17] MEDS: ALPRAZOLAM 0.25 MG TABLET PO PRN (19:52)
[2018-10-17 20:00] VITALS: BP 90/69
[2018-10-17] MEDS: INSULIN GLARGINE, 100 UNIT/ML CARTRIDGE SQ SCH (21:45)
--- NOTE | 2018-10-18 06:00 | NUR ---
PATIENT ASLEEP, EASILY AROUSABLE. RESPIRATIONS EVEN. NO SIGNS OF PAIN NOTED. NO SYMPTOMS OF HYPER/HYPOGLYCEMIA. NEEDS ATTENDED. SAFETY PRECAUTIONS AND COMFORT MEASURES IN PLACE. WILL GIVE REPORT TO DAY SHIFT FOR CONTINUITY OF CARE.
[2018-10-18] MEDS: BLOOD SUGAR DIAGNOSTIC 1 EACH STRIP IN SCH ×3 (06:41→17:19)
[2018-10-18 07:46] LABS: CALCIUM, SERUM 8.6 mg/dL (8.5-10.1); CREATININE 1.9 mg/dL (0.6-1.3); MAGNESIUM 2.1 mg/dL (1.8-2.4); PHOSPHORUS 4.5 mg/dL (2.5-4.9)
--- NOTE | 2018-10-18 07:52 | NUR ---
MS RN NOTES PATIENT RECEIVED RESTING INSIDE ROOM. AWAKE, ALERT AND ORIENTED, VERBALLY RESPONSIVE AND RESPONDS TO VERBAL AND TACTILE STIMULI. BREATHING EVEN AND UNLABORED. NO ACUTE DISTRESS NOTED AT THIS TIME. PATIENT CALM AND RELAXED. NO CHANGES IN LOC NOTED AT THIS TIME. NO IV ACCESS ON PATIENT, MD AWARE. WILL CONTINUE TO MONITOR. BED LOCKED AND IN LOW POSITION. BILATERAL UPPER SIDE RAILS UP AND LOCKED. CALL LIGHT WITHIN EASY REACH
[2018-10-18 08:00] VITALS: BP 104/71
[2018-10-18 08:11] LABS: BASOPHILS % (AUTO) 0.6 % (0.0-2.0); EOSINOPHILS % (AUTO) 0.7 % (0.0-6.0); HEMATOCRIT 47 % (39-51); HEMOGLOBIN 15.4 g/dL (13.5-17.5); LYMPHOCYTES # (AUTO) 1.8 /CMM (0.8-4.8); LYMPHOCYTES % (AUTO) 27.9 % (20.0-44.0); MEAN CORPUSCULAR HGB CONC 33 g/dl (31.0-36.0); MEAN CORPUSCULAR VOLUME 88 fL (80-96); MONOCYTES # (AUTO) 0.5 /CMM (0.1-1.30); MONOCYTES % (AUTO) 8.1 % (2.0-12.0); NEUTROPHILS # (AUTO) 4.1 /CMM (1.8-8.9); NEUTROPHILS % (AUTO) 62.7 % (43.0-81.0); PLATELET COUNT (AUTO) 134 /CMM (150-450); RED BLOOD CELL COUNT(AUTO) 5.28 MIL/uL (4.5-6.0); WHITE BLOOD COUNT (AUTO) 6.6 K/uL (4.3-11.0)
[2018-10-18] MEDS: LACTOBACILLUS RHAMNOSUS GG 1 EACH CAP.SPRINK PO SCH ×2 (08:19→16:20)
[2018-10-18] MEDS: GLUCERNA SHAKE 237 ML CAN PO SCH ×2 (08:19→16:20)
[2018-10-18] MEDS: INSULIN ASPART/LISPRO 100 UNIT/ML CARTRIDGE SQ SCH ×2 (08:19→17:40)
[2018-10-18] MEDS: PANTOPRAZOLE 40 MG TABLET.DR PO SCH (08:19)
[2018-10-18] MEDS: INSULIN REGULAR, HUMAN 100 UNIT/ML 3 ML VIAL SQ PRN ×2 (12:23→17:19)
[2018-10-18] MEDS ORDERED: METF-440 PO (14:38)
[2018-10-18] MEDS ORDERED: FURO-144 PO (14:38)
[2018-10-18] MEDS ORDERED: ASPI-1169 PO (14:50)
[2018-10-18] MEDS ORDERED: CARV3.122 PO (14:50)
[2018-10-18 16:00] VITALS: BP 88/71
--- NOTE | 2018-10-18 17:00 | NUR ---
MS RN NOTES FAMILY AT BEDSIDE. DISCHARGE INSTRUCTIONS AND EDUCATION PROVIDED. DEMONSTRATED WOUND CARE, PATIENT AND FAMILY VERBALIZED UNDERSTANDING
--- NOTE | 2018-10-18 17:20 | NUR ---
MS RN NOTES FSBS TAKEN WITH RESULT OF 155. PATIENT REFUSED TO HAVE INSULIN. RISKS AND BENEFITS EXPLAINED BUT TO NO AVAIL. PATIENT STRONGLY REFUSED. WILL CONTINUE TO MONITOR
--- NOTE | 2018-10-18 18:28 | NUR ---
MS RN NOTES PATIENT FOR DISCHARGE HOME TODAY. DISCHARGE INSTRUCTIONS AND EDUCATION GIVEN AND PATIENT VERBALIZED UNDERSTANDING, FAMILY AT BEDSIDE, LUKE AND MERY . ALL BELONGINGS COMPLETE ON DISCHARGE, NO REPORT OF MISSING INVENTORY. WRITTEN PRESCRIPTION GIVEN TO PATIENT. NO IV ON PATIENT. WRISTBAND REMOVED. PATIENT LEFT UNIT AT 1825 VIA WHEELCHAIR ACCOMPANIED BY NURSING STAFF. LEFT IN STABLE CONDITION. NO ACUTE DISTRESS, NO SOB NOTED. PATIENT DENIES ANY PAIN OR DISCOMFORT. NO NEW SKIN BREAKDOWN NOTED ON DISCHARGE. LEFT HOSPITAL PREMISES VIA PRIVATE CAR. MD AWARE OF DISCHARGE
== END 2018-10-18 19:00 | disposition home or self-care (01) | DRG 853 ==
LOC: ER 11:10 → TELE-TD 13:50 → MEDSG1 10-04 09:02 → TELE 10-15 10:33 → MED 10-15 10:42
PROVIDERS: ADMIT Nurse Practitioner Acute Care; ATTEND Internal Medicine
PROC: 0JBP0ZZ Excision of Left Lower Leg Subcutaneous Tissue and Fascia, Open Approach (ICD-10-PCS; principal; 2018-10-03)
PROC: 0JBN0ZZ Excision of Right Lower Leg Subcutaneous Tissue and Fascia, Open Approach (ICD-10-PCS; principal; 2018-10-03)
PROC: 0W9B3ZZ Drainage of Left Pleural Cavity, Percutaneous Approach (ICD-10-PCS; 2018-10-06)
DX: A41.9 Sepsis, unspecified organism (principal); L89.023 Pressure ulcer of left elbow, stage 3; I50.21 Acute systolic (congestive) heart failure; N17.0 Acute kidney failure with tubular necrosis; J15.9 Unspecified bacterial pneumonia; E43 Unspecified severe protein-calorie malnutrition; I21.A1 Myocardial infarction type 2; J96.01 Acute respiratory failure with hypoxia; E87.2 Acidosis; L03.115 Cellulitis of right lower limb; L03.116 Cellulitis of left lower limb; E87.1 Hypo-osmolality and hyponatremia; J90 Pleural effusion, not elsewhere classified; I42.9 Cardiomyopathy, unspecified; R65.20 Severe sepsis without septic shock; I87.2 Venous insufficiency (chronic) (peripheral); D75.1 Secondary polycythemia; D69.59 Other secondary thrombocytopenia; E11.22 Type 2 diabetes mellitus with diabetic chronic kidney disease; E11.51 Type 2 diabetes mellitus with diabetic peripheral angiopathy without gangrene; E11.42 Type 2 diabetes mellitus with diabetic polyneuropathy; E11.649 Type 2 diabetes mellitus with hypoglycemia without coma; E87.5 Hyperkalemia; D69.6 Thrombocytopenia, unspecified; Z82.49 Family history of ischemic heart disease and other diseases of the circulatory system; Z80.9 Family history of malignant neoplasm, unspecified; I77.1 Stricture of artery; I87.8 Other specified disorders of veins; L89.010 Pressure ulcer of right elbow, unstageable; R91.1 Solitary pulmonary nodule; K57.30 Diverticulosis of large intestine without perforation or abscess without bleeding; N18.9 Chronic kidney disease, unspecified; I11.0 Hypertensive heart disease with heart failure; I27.21 Secondary pulmonary arterial hypertension; I25.10 Atherosclerotic heart disease of native coronary artery without angina pectoris; I25.2 Old myocardial infarction; E80.6 Other disorders of bilirubin metabolism
CPT/HCPCS: 36415; 36600; 71045-TC; 71250-TC; 71260-TC; 76770-TC; 76942-TC; 80048-TC; 80053-TC; 80061-TC; 80076-TC; 80202-TC; 81000-TC; 82105; 82378; 82550-TC; 82784; 82803-TC; 82962-TC; 82977-TC; 83605-TC; 83615-TC; 83735-TC; 83880; 84100-TC; 84134-TC; 84153-TC; 84154-TC; 84155; 84165; 84443-TC; 84484-TC; 84702-TC; 85025-TC; 85610-TC; 85730-TC; 86301; 86334; 86480; 87040-TC; 87070-TC; 87075-TC; 87086-TC; 87102-TC; 87116; 87206; 87806; 87899; 88305-TC; 88312-TC; 89051-TC; 92521; 93307-TC; 93970-TC; 97110-TC; 97116-TC; 97530-TC; A4216; A6253; A6402; A6403; G0378; J0696; J1815; J1940; J2185; J3370; J3475; J3480; J3490; J7030; J7050; J7060; Q9963; Q9967